=== PATIENT | male | born 1950 | race Caucasian/White ===

== ENCOUNTER 2017-10-21 13:40 | Emergency (ER) | payer OTHER ==
[2017-10-21] MEDS ORDERED: LIDOCAINE 1% 20 ML MDV ONE (14:35)
--- NOTE | 2017-10-21 16:27 | EDPHYS ---
Physician Documentation [facility] Name: Ignacio Espinal Age: 67 yrs Sex: Male : 1950 Arrival Date: 10/21/2017 Time: 13:47 Bed 12 Private MD: ED Physician Aedn Rushing HPI: 10/21 13:59 This 67 yrs old Male presents to ER via Ambulatory with complaints of rh1 Laceration To Hand. 13:59 The patient has a laceration related to: working, from a knife, occurred at home, and rh1 there are no complicating factors. The injury was accidental. The laceration(s) is(are) located on the dorsal aspect of proximal phalanx of right little finger and palmar aspect of proximal phalanx of right little finger. Onset: The symptoms/episode began/occurred just prior to arrival. Associated signs and symptoms: Pertinent negatives: deformity, heavy bleeding, loss of consciousness, numbness distal to injury, suspected foreign body. The patient has not experienced similar symptoms in the past. The patient has not recently seen a physician. Pt. reports he was cutting limbs, and missed the limb, causing laceration at right lateral hand at base of 5th digit. Denies any paresthesias, weakness, decreased ROM.. Historical: - Allergies: 13:57 No Known Allergies; iw - PSHx: 13:56 surgery on finger; Hernia repair; iw - Immunization history:: Adult Immunizations not up to date. - Social history:: Smoking status: . ROS: 13:59 Constitutional: Negative for fever rh1 13:59 Abdomen/GI: Negative for nausea and vomiting. 13:59 MS/extremity: Positive for laceration, pain, Negative for decreased range of motion, paresthesias. 13:59 Skin: Positive for laceration(s). 13:59 Neuro: Negative for numbness, tingling, weakness. 13:59 All other systems are negative. Exam: 13:59 Constitutional: This is a well developed, well nourished patient who is awake, alert, rh1 and in no acute distress. Head/Face: Normocephalic, atraumatic. Neck: Trachea midline, and no cervical lymphadenopathy. Supple, full range of motion without nuchal rigidity. No Meningismus. Cardiovascular: Regular rate and rhythm with a normal S1 and S2. No gallops, murmurs, or rubs. No JVD. No pulse deficits. Respiratory: Lungs have equal breath sounds bilaterally, clear to auscultation. No rales, rhonchi or wheezes noted. No increased work of breathing. Abdomen/GI: Soft, non-tender, with normal bowel sounds. No distension. No guarding or rebound. No evidence of tenderness throughout. Back: No spinal tenderness. No costovertebral tenderness. Full range of motion. 13:59 Musculoskeletal/extremity: Extremities: grossly normal except: noted in the palmar aspect of proximal phalanx of right little finger and dorsal aspect of proximal phalanx of right little finger: laceration, pain, tenderness, There is no evidence of decreased ROM, deformity, ROM: intact in all extremities, full active range of motion, in the right hand, left hand, right arm and left arm, full flexion/extension at fingers at right hand, full passive range of motion, in the right hand, left hand, right arm and left arm, Pulses: noted to be 2+ in the right radial artery and left radial artery, Perfusion: the extremity is pink, warm, with brisk capillary refill, fingers at right hand, Sensation intact. 13:59 Skin: injury, laceration(s), the wound is approximately 2.5 cm(s), with a depth of .5 cm(s), of the palmar aspect of proximal phalanx of right little finger and dorsal aspect of proximal phalanx of right little finger, that can be described as clean, no foreign body, linear, with mild bleeding. 13:59 Neuro: Orientation: is normal, to person, place \T\ time. Mentation: is normal, lucid, able to follow commands, Motor: is normal, moves all fours, Sensation: is normal, no obvious gross deficits, numbness, is not appreciated, tingling, is not appreciated, Gait: is steady, at a normal pace, without difficulty. Vital Signs: 13:56 BP 137 / 84; Pulse 74; Resp 16; Temp 98.2; Pulse Ox 98% on R/A; Weight 77.11 kg; Height iw 5 ft. 8 in. (172.72 cm); Pain 0/10; 13:56 Body Mass Index 25.85 (77.11 kg, 172.72 cm) iw Laceration: 16:24 Wound Repair of 2.5cm ( 1.0in ) subcutaneous laceration to right hand. Linear shaped.. rh1 Distal neuro/vascular/tendon intact. Anesthesia: Wound infiltrated with 8 mls of 1% lidocaine. Wound prep: Moderate cleansing with betadine by nurse, Wound irrigation with saline by nurse, Copious irrigation. Skin closed with 8 4-0 Prolene using simple sutures and sterile technique. Dressed with Bacitracin, 4x4's, non-adherent dressing. Patient tolerated well. MDM: 13:59 Patient medically screened. rh1 16:24 Data reviewed: vital signs, nurses notes, and as a result, I will discharge patient. rh1 Data interpreted: Pulse oximetry: on room air is 98 %. Interpretation: normal. Counseling: I had a detailed discussion with the patient and/or guardian regarding: the historical points, exam findings, and any diagnostic results supporting the discharge/admit diagnosis, the need for outpatient follow up, a family practitioner, to return to the emergency department if symptoms worsen or persist or if there are any questions or concerns that arise at home. 10/21 14:27 Order name: Prolene, Sutures; Complete Time: 19:29 rh1 10/21 14:27 Order name: Dressing - Wound; Complete Time: 19:29 rh1 10/21 14:27 Order name: Gloves, Sterile; Complete Time: 19:29 rh1 10/21 14:27 Order name: Setup Suture Tray; Complete Time: 14:42 rh1 10/21 14:48 Order name: Wound Care: please soak in betadine and then irrigate with 1 L NS; Complete 1 Time: 19:29 Administered Medications: 14:31 Drug: Lidocaine (1 %) 1 vials Volume: 20 ml; Route: Infiltration; 16:35 Drug: Tetanus-Diphtheria Toxoid Adult 0.5 ml {Hotel Baggage Handler: [employer] ([email or web address]). Exp: 12/10/2019. Lot #: [id number]. } Route: IM; Site: left deltoid; 17:00 Follow up: Response: No adverse reaction Disposition: 10/22 14:48 Co-signature as Attending Physician, Aden Rushing MD I agree with the assessment and kathryn plan of care. Disposition: 10/21/17 16:26 Discharged to Home. Impression: Laceration without foreign body of right hand. - Condition is Stable. - Discharge Instructions: Laceration Care, Adult, Sutured Wound Care. - Medication Reconciliation Form, Thank You Letter, Antibiotic Education, Prescription Opioid Use form. - Follow up: Humza Manuel MD; When: 10 - 14 days; Reason: Further diagnostic work-up, Recheck today's complaints, Continuance of care, Staple/Suture removal, Re-evaluation by your physician. Follow up: Emergency Department; When: As needed; Reason: Fever > 102 F, If symptoms return, Trouble breathing, Worsening of condition. - Problem is new. - Symptoms have improved. Signatures: Aden Rushing MD MD cha Williams, Irene, RN RN Paulina Shrestha NP PHOTOGRAMMETRIC SURVEYOR rh1
--- NOTE | 2017-10-21 16:27 | ER ---
Nurse's Notes [facility] Name: Ignacio Espinal Age: 67 yrs Sex: Male : 1950 Arrival Date: 10/21/2017 Time: 13:47 Bed 12 Private MD: Diagnosis: Laceration without foreign body of right hand Presentation: 10/21 13:40 Presenting complaint: Patient states: cut his right hand with knife, laceration to iw medial aspect of right hand, moderate amount of bleeding, controlled now. Transition of care: patient was not received from another setting of care. Complicating Factors: There are no complicating factors for this patient. Onset of symptoms was October 21, 2017. Care prior to arrival: None. 13:40 Method Of Arrival: Ambulatory iw 13:40 Acuity: BEE 4 iw Triage Assessment: 15:00 General: Appears in no apparent distress. Behavior is calm, cooperative. Injury iw Description: Laceration. Historical: - Allergies: 13:57 No Known Allergies; iw - PSHx: 13:56 surgery on finger; Hernia repair; iw - Immunization history:: Adult Immunizations not up to date. - Social history:: Smoking status: . Screenin:45 Abuse screen: Denies threats or abuse. Denies injuries from another. Nutritional iw screening: No deficits noted. Tuberculosis screening: No symptoms or risk factors identified. Fall Risk None identified. Assessment: 15:00 General: Appears in no apparent distress. Pain: Denies pain. Neuro: Level of iw Consciousness is awake, alert, obeys commands. Musculoskeletal: Range of motion: intact in all extremities. Injury Description: Laceration sustained to palmar aspect of proximal phalanx of right little finger and dorsal aspect of proximal phalanx of right little finger is 2.6 to 7.5 cm long, bleeding moderately. 15:52 Reassessment: Patient appears in no apparent distress at this time. Patient and/or iw family updated on plan of care and expected duration. Pain level reassessed. Vital Signs: 13:56 BP 137 / 84; Pulse 74; Resp 16; Temp 98.2; Pulse Ox 98% on R/A; Weight 77.11 kg; Height iw 5 ft. 8 in. (172.72 cm); Pain 0/10; 13:56 Body Mass Index 25.85 (77.11 kg, 172.72 cm) iw ED Course: 13:47 Patient arrived in ED. iw 13:51 Maira Berry RN is Primary Nurse. iw 13:55 Triage completed. iw 13:58 Paulina Mortensen NP is PHCP. rh1 13:58 Aden Rushing MD is Attending Physician. rh1 14:00 Patient has correct armband on for positive identification. iw 14:20 Patient did not have IV access during this emergency room visit. iw 15:30 Assist provider with laceration repair on right hand and palmar aspect of proximal iw phalanx of right little finger and dorsal aspect of proximal phalanx of right little finger that was between 2.6 to 7.5 cm using sutures. Set up tray. Performed by Paulina Mortensen NP Dressed with 4X4s, Neosporin, Patient tolerated well. 16:26 Humza Manuel MD is Referral Physician. rh1 19:26 Arm band placed on. iw Administered Medications: 14:31 Drug: Lidocaine (1 %) 1 vials Volume: 20 ml; Route: Infiltration; iw 16:35 Drug: Tetanus-Diphtheria Toxoid Adult 0.5 ml {Head Orthopedic Team Physician: [employer]. Exp: iw 12/10/2019. Lot #: [id number]. } Route: IM; Site: left deltoid; 17:00 Follow up: Response: No adverse reaction iw Outcome: 16:26 Discharge ordered by . rh1 16:48 Discharged to home ambulatory, with family. iw 16:48 Condition: good 16:48 Discharge instructions given to patient, Instructed on discharge instructions, follow up and referral plans. Demonstrated understanding of instructions, follow-up care. 16:49 Patient left the ED. iw Signatures: Maira Berry RN RN iw Paulina Mortensen, JASMIN BILINGUAL SALES ASSISTANT rh1 Corrections: (The following items were deleted from the chart) 19:24 14:20 Assist provider with laceration repair on right hand and palmar aspect of iw proximal phalanx of right little finger and dorsal aspect of proximal phalanx of right little finger that was between 2.6 to 7.5 cm using sutures. Set up tray. Performed by Paulina Mortensen NP Dressed with 4X4s, Neosporin, Patient tolerated well. iw
[2017-10-21 16:53] VITALS: BP 137/84; TEMP 98.2; O2SAT 98
[2017-10-21] MEDS ORDERED: TETANUS & DIPHTHERIA TOX,ADULT 0.5 ML VIAL ONE (16:57)
== END 2017-10-21 16:49 | disposition home or self-care (01) ==
LOC: ER 13:40
DX: W27.8XXA Contact with other nonpowered hand tool, initial encounter; Y93.H2 Activity, gardening and landscaping; Y99.8 Other external cause status; Y92.007 Garden or yard of unspecified non-institutional (private) residence as the place of occurrence of the external cause; S61.216A Laceration without foreign body of right little finger without damage to nail, initial encounter
CPT/HCPCS: 90714; 99283

== ENCOUNTER 2018-06-20 09:47 | Day surgery (SDC) | payer OTHER ==
--- NOTE | 2018-06-15 14:21 | RAD REPORT ---
EXAM DESCRIPTION: Earl Alberto (2 Views)06/15/2018 2:12 pm CLINICAL HISTORY: Preop for hernia surgery. Hypertension COMPARISON: 2014 FINDINGS: The lungs appear clear of acute infiltrate. The heart is normal size IMPRESSION: No acute abnormalities displayed
[2018-06-15 14:36] LABS: Absolute Lymphocytes (CBC) 1.9 K/uL (0.7-4.9); Absolute Monocytes 0.4 K/uL (0.1-1.3); Absolute Neutrophil 4.6 K/uL (1.8-8.0); Basophils % 1.3 % (0-1.3); Eosinophils % 1.5 % (0-4.4); Hematocrit 40.7 % (39.6-49.0); Lymphocytes % 26.7 % (15.3-44.8); MCH 29.7 pg (27.0-35.0); MPV 7.8 fL (7.6-11.3); Monocytes % 5.7 % (3.3-12.3); RBC Red Blood Cell Count 4.62 M/uL (4.33-5.43)
[2018-06-15 14:45] LABS: Potassium 3.9 mmol/L (3.5-5.1)
--- NOTE | 2018-06-15 15:28 | EKG ---
Test Date: 2018-06-15 Test Time: 13:30:42 Competitive Shopper: SELENA MEASUREMENT RESULTS: Intervals: Rate: 70 OK: 196 QRSD: 102 QT: 394 QTc: 425 [place]: P: 65 OK: 196 QRS: 18 T: 39 INTERPRETIVE STATEMENTS: Normal sinus rhythm Normal ECG Compared to ECG 07/06/2017 08:04:28 Sinus bradycardia no longer present First degree AV block no longer present Electronically Signed On 06-15-18 15:27:22 LAYOUT ARTIST by Juventino Medley
[2018-06-20] MEDS ORDERED: FENTANYL CITR 100 MCG/2 ML ONE (10:16)
[2018-06-20] MEDS ORDERED: GLYCOPYRROLATE 0.2 MG/ML SYR ONE ×2 (10:17→11:36)
[2018-06-20] MEDS ORDERED: Ringers Lactate 1,000 ML IV ONE (10:17)
[2018-06-20] MEDS ORDERED: CEFAZOLIN/SWI 1gm 1 GM/10 ML SYR ONE (10:17)
[2018-06-20] MEDS ORDERED: PROPOFOL 200 MG/20 ML VIAL IV ONE (10:17)
[2018-06-20] MEDS ORDERED: LIDOCAINE 2% MPF 5 ML VIAL ONE (10:18)
[2018-06-20] MEDS ORDERED: NEOSTIGMINE 1 MG/ML -5 ML SYRINGE ONE (10:20)
[2018-06-20] MEDS ORDERED: ONDANSETRON HCL 40 MG/20 ML VIAL ONE (10:20)
[2018-06-20] MEDS ORDERED: ROCURONIUM 50 MG/5 ML VIAL IV ONE (10:20)
[2018-06-20] MEDS ORDERED: MIDAZOLAM HCL 2 MG/2 ML INJ ONE (10:22)
[2018-06-20] MEDS ORDERED: HYDROCODONE/APAP 7.5/325 MG TAB ONE (13:09)
[2018-06-20 13:32] VITALS: BP 110/67; TEMP 98.3; O2SAT 96
--- NOTE | 2018-06-20 22:52 | DS ---
Date of Discharge: 06/20/2018 The patient will go to Day Surgery and home when stable. Disposition: Home. Condition: Stable. Discharge Instructions: Resume home medications and diet. Activity as tolerated. No heavy lifting. Remove outer dressing in 2 days. Shower. Keep wound clean and dry. Keep Steri-Strips on all time s. Tylenol No. 3 one tablet p.o. q.4 hours p.r.n. pain. Abdominal binder. Follow up in my office i n 1 week. Call for appointment. VINAYAK/CALEB Voice ID: [id number] Report ID: [id number]
--- NOTE | 2018-06-20 22:52 | OP ---
Date of Procedure: 06/20/2018 Surgeon: Juan Ga MD Drywall Application Supervisor: JORDY Bauer. Preoperative Diagnosis: Umbilical hernia. Postoperative Diagnosis: Umbilical hernia. Procedure: Laparoscopic-assisted repair of umbilical hernia. Estimated Blood Loss: Minimal. Specimen: Hernia sac and contents. Findings: As above. Anesthesia: General. Complications: None. Disposition: The patient tolerated the procedure in stable condition and was taken to Recovery in go od general condition. Procedure In Detail: The patient was brought to the OR and placed in supine position. General anest hesia was begun. The patient was prepped and draped in usual sterile fashion. Marcaine 0.5% was inf iltrated locally. A 15-blade was used to make a 3-cm curvilinear incision underneath the umbilicus. Subcutaneous tissue was divided. Hernia stalk was identified and excised at the fascial defect. He rnia sac and contents were excised and sent to Pathology as specimen. A 3-cm defect remained. A med ium Ventralex mesh was placed and secured using [id number] #1 PDS suture to secure the mesh and close the fascial defect. Prior to that, a 5-mm trocars had been placed with laparoscope in the left upper quadrant, and this was after the fascia was closed with the mesh. This was used to check, and that needed some shahla to straighten out the mesh. So, another 5-mm trocars placed in the left lo wer quadrant, and then Tacker was used to secure the mesh to the peritoneal surface. No evidence of bleeding or bowel injury was appreciated. Subsequently, all trocars were removed under direct vision . A 3-0 chromic was used to reattached the umbilicus, and 3-0 chromic was also used to approximate s ubcutaneous tissue and close the skin. Sterile dressing was applied. The patient was awakened and t aken to Recovery in good general condition. /MODL Voice ID: [id number] Report ID: [id number]
== END 2018-06-20 14:00 | disposition home or self-care (01) ==
LOC: OR 09:47
PROVIDERS: ATTEND Surgery
PROC: 0WUF0JZ Supplement Abdominal Wall with Synthetic Substitute, Open Approach (ICD-10-PCS; principal; 2018-06-20 11:15)
DX: K42.9 Umbilical hernia without obstruction or gangrene (principal); I10 Essential (primary) hypertension; K21.9 Gastro-esophageal reflux disease without esophagitis; Z82.3 Family history of stroke
CPT/HCPCS: 36415; 49585; 71046; 80048; 85025; 88302; 93005; J0690; J2250; J2405; J2704; J2710; J3010

== ENCOUNTER 2018-06-23 10:05 | Emergency (ER) | payer OTHER ==
[2018-06-23] MEDS ORDERED: NA CHLORIDE 0.9% 500 ML ONE (10:57)
[2018-06-23 11:07] LABS: Absolute Lymphocytes (CBC) 1.3 K/uL (0.7-4.9); Absolute Monocytes 0.7 K/uL (0.1-1.3); Absolute Neutrophil 5.5 K/uL (1.8-8.0); Hematocrit 40.8 % (39.6-49.0); MCH 30.4 pg (27.0-35.0); MCV 87.3 fL (80-100); MPV 7.9 fL (7.6-11.3); RBC Red Blood Cell Count 4.67 M/uL (4.33-5.43)
[2018-06-23 11:12] LABS: Protime INR 1.03
[2018-06-23 11:20] LABS: Albumin 3.8 g/dL (3.4-5.0); Bilirubin Direct 0.2 mg/dL (0-0.2); Bilirubin Total 0.4 mg/dL (0.2-1.0); Magnesium 2.1 mg/dL (1.8-2.4); Protein, Total 7.5 g/dL (6.4-8.2)
--- NOTE | 2018-06-23 12:08 | ER ---
Nurse's Notes [facility] Name: Ignacio Espinal Age: 68 yrs Sex: Male : 1950 Arrival Date: 06/23/2018 Time: 10:08 Bed 15 Private MD: Humza Manuel R Diagnosis: Cellulitis of abdominal wall;Constipation, unspecified Presentation: 06/23 10:19 Presenting complaint: Patient states: "I had surgery Wednesday on my hernias, afterwards aj1 we went to eat and they had that band on me so tight that I passed out. I feel on my side and messed up my neck. I took my bandages off yesterday and this morning it was red around it." Also reports poor appetite and he has been unable to have a bowel movement since prior to surgery. Transition of care: patient was not received from another setting of care. Onset of symptoms was June 23, 2018. Risk Assessment: Do you want to hurt yourself or someone else? Patient reports no desire to harm self or others. Initial Sepsis Screen: Does the patient meet any 2 criteria? No. Patient's initial sepsis screen is negative. Does the patient have a suspected source of infection? Yes: Skin breakdown/wound. Care prior to arrival: None. 10:19 Method Of Arrival: Ambulatory aj1 10:19 Acuity: BEE 3 aj1 Triage Assessment: 10:22 General: Appears in no apparent distress. comfortable, Behavior is calm, cooperative, aj1 appropriate for age. Pain: Denies pain. Neuro: Level of Consciousness is awake, alert, obeys commands. Cardiovascular: Patient's skin is warm and dry. Respiratory: Airway is patent Respiratory effort is even, unlabored, Respiratory pattern is regular, symmetrical. Historical: - Allergies: 10:22 No Known Allergies; aj1 - Home Meds: 10:22 Metoprolol Tartrate Oral [Active]; amlodipine oral [Active]; terazosin oral oral aj1 [Active]; Aspirin Oral [Active]; - PMHx: 10:22 Hypertension; aj1 - PSHx: 10:22 Hernia repair; aj1 - Immunization history:: Flu vaccine is up to date. - Social history:: Smoking status: Patient/guardian denies using tobacco. - Ebola Screening: : Patient denies travel to an Ebola-affected area in the 21 days before illness onset. Screenin:29 Abuse screen: Denies threats or abuse. Denies injuries from another. Nutritional hj screening: No deficits noted. Tuberculosis screening: No symptoms or risk factors identified. Fall Risk None identified. Assessment: 10:22 General: Appears in no apparent distress. uncomfortable, Behavior is calm, cooperative, hj appropriate for age. Pain: Complains of pain in abdomen. Neuro: Level of Consciousness is awake, alert, obeys commands, Oriented to person, place, time, situation, Appropriate for age. Cardiovascular: Capillary refill < 3 seconds Patient's skin is warm and dry. Respiratory: Airway is patent Respiratory effort is even, unlabored, Respiratory pattern is regular, symmetrical. GI: No signs and/or symptoms were reported involving the gastrointestinal system. : No signs and/or symptoms were reported regarding the genitourinary system. EENT: No signs and/or symptoms were reported regarding the EENT system. Derm: Reports pain redness on surgical site. Musculoskeletal: No signs and/or symptoms reported regarding the musculoskeletal system. 11:30 Reassessment: Patient and/or family updated on plan of care and expected duration. Pain hj level reassessed. Patient is alert, oriented x 3, equal unlabored respirations, skin warm/dry/pink. awaiting results and POC;. 12:00 Reassessment: provider in room for results and POC;. hj 12:05 Reassessment: pt for D/C;. hj Vital Signs: 10:22 BP 156 / 91; Pulse 82; Resp 18; Temp 98.2; Pulse Ox 99% on R/A; Weight 80.29 kg (R); aj1 Height 5 ft. 7 in. (170.18 cm) (R); Pain 0/10; 12:03 BP 154 / 89; Pulse 68; Resp 18; Pulse Ox 99% on R/A; hj 10:22 Body Mass Index 27.72 (80.29 kg, 170.18 cm) aj1 ED Course: 10:08 Patient arrived in ED. mr 10:08 Humza Manuel MD is Private Physician. mr 10:21 Triage completed. aj1 10:22 Arm band placed on Patient placed in an exam room. aj1 10:24 Robinson Barrios RN is Primary Nurse. hj 10:29 Patient has correct armband on for positive identification. Bed in low position. Call light in reach. Side rails up X 1. 10:35 Aden Eubanks PA is PHCP. cp 10:35 Isabella Belle MD is Attending Physician. cp 10:55 Initial lab(s) drawn, by al, sent to lab. Inserted saline lock: 20 gauge in right hj antecubital area, using aseptic technique. Blood collected. 11:11 XRAY Abdomen Acute Series In Process Unspecified. EDMS 12:06 Juan Ga MD is Referral Physician. cp 12:19 Urine Microscopic Only Sent. Administered Medications: 10:50 Drug: NS 0.9% 500 ml Route: IV; Rate: bolus; Site: right antecubital; 12:07 Drug: Augmentin Chewable Tablet 800 mg Route: PO; 12:13 Follow up: Response: No adverse reaction Outcome: 12:07 Discharge ordered by . cp 12:20 Patient left the ED. Signatures: Dispatcher [employer] EDAR Frances Dubon RN RN Kell Castellanos Henry, RN RN hj Page, Corey, PA PA cp
--- NOTE | 2018-06-23 12:08 | EDPHYS ---
Physician Documentation [facility] Name: Ignacio Espinal Age: 68 yrs Sex: Male : 1950 Arrival Date: 06/23/2018 Time: 10:08 Bed 15 Private MD: Humza Manuel R ED Physician Isabella Belle HPI: 06/23 10:45 This 68 yrs old Male presents to ER via Ambulatory with complaints of cp Surgical sight red. 10:45 The patient presents with umbilical erythema. cp 10:45 Onset: The symptoms/episode began/occurred noticed today after removing abdominal cp binder. The symptoms do not radiate. Associated signs and symptoms: Pertinent positives: constipation, Pertinent negatives: blood in stools, diarrhea, fever, vomiting, abdominal pain. Historical: - Allergies: 10:22 No Known Allergies; aj1 - Home Meds: 10:22 Metoprolol Tartrate Oral [Active]; amlodipine oral [Active]; terazosin oral oral aj1 [Active]; Aspirin Oral [Active]; - PMHx: 10:22 Hypertension; aj1 - PSHx: 10:22 Hernia repair; aj1 - Immunization history:: Flu vaccine is up to date. - Social history:: Smoking status: Patient/guardian denies using tobacco. - Ebola Screening: : Patient denies travel to an Ebola-affected area in the 21 days before illness onset. ROS: 10:47 Constitutional: Negative for body aches, chills, fever, poor PO intake. cp 10:47 Eyes: Negative for injury, pain, redness, and discharge. cp 10:47 ENT: Negative for drainage from ear(s), ear pain, sore throat, difficulty swallowing, difficulty handling secretions. 10:47 Cardiovascular: Negative for chest pain, edema, palpitations. 10:47 Respiratory: Negative for cough, shortness of breath, wheezing. 10:47 Abdomen/GI: Positive for constipation, of the umbilical area, erythema, Negative for nausea, vomiting, and diarrhea, anorexia, black/tarry stool, rectal bleeding. 10:47 Back: Negative for radiated pain. 10:47 : Negative for urinary symptoms, testicular pain 10:47 Neuro: Negative for altered mental status, headache, weakness. 10:47 All other systems are negative. Exam: 10:55 Constitutional: The patient appears in no acute distress, alert, awake, cp non-diaphoretic, non-toxic, well developed, well nourished. 10:55 Head/Face: Normocephalic, atraumatic. cp 10:55 Eyes: Periorbital structures: appear normal, Pupils: equal, round, and reactive to light and accomodation, Conjunctiva: normal, no exudate, no injection, Sclera: no appreciated abnormality, Lids and lashes: appear normal, bilaterally. 10:55 ENT: External ear(s): are unremarkable, Ear canal(s): are normal, clear, TM's: bulging, is not appreciated, bilaterally, dullness, bilaterally, erythema, is not appreciated, bilaterally, Nose: is normal, Mouth: is normal, Posterior pharynx: is normal, airway is patent, no erythema, no exudate. 10:55 Neck: ROM/movement: is normal, is supple, without pain, no range of motions limitations, no nuchal rigidity. 10:55 Neck: Lymph nodes: lymphadenopathy is appreciated, parotid nodes. 10:55 Chest/axilla: Inspection: normal, Palpation: is normal, no crepitus, no tenderness. 10:55 Cardiovascular: Rate: normal, Rhythm: regular, Heart sounds: murmur, not appreciated, Edema: is not appreciated, JVD: is not appreciated. 10:55 Respiratory: the patient does not display signs of respiratory distress, Respirations: normal, no use of accessory muscles, no retractions, no splinting, no tachypnea, labored breathing, is not present, Breath sounds: are clear throughout, no decreased breath sounds, no stridor, no wheezing. 10:55 Abdomen/GI: Inspection: scar(s), are noted in the umbilical area, left upper quadrant and left lower quadrant, mild erythema noted extending from umbilicus, Bowel sounds: active, all quadrants, Palpation: abdomen is soft and non-tender, in all quadrants, rebound tenderness, is not appreciated, voluntary guarding, is not appreciated, involuntary guarding, is not appreciated. 10:55 Back: pain, is absent, ROM is normal. 10:55 Musculoskeletal/extremity: Exam is negative for calf tenderness, decreased range of motion, deformity, injury. 10:55 Neuro: Orientation: to person, place \T\ time. Mentation: is normal, Cerebellar function: is grossly normal, Motor: moves all fours, strength is normal, Sensation: is normal. Vital Signs: 10:22 BP 156 / 91; Pulse 82; Resp 18; Temp 98.2; Pulse Ox 99% on R/A; Weight 80.29 kg (R); aj1 Height 5 ft. 7 in. (170.18 cm) (R); Pain 0/10; 12:03 BP 154 / 89; Pulse 68; Resp 18; Pulse Ox 99% on R/A; hj 10:22 Body Mass Index 27.72 (80.29 kg, 170.18 cm) aj1 MDM: 10:35 Patient medically screened. cp 12:00 Physician consultation: Juan Ga MD was called at 12:00, was contacted at 12:00, regarding patient's condition, and will see patient in office, next week. 12:05 Data reviewed: vital signs, nurses notes, lab test result(s), radiologic studies, plain cp films. 12:05 Test interpretation: by ED physician or midlevel provider: plain radiologic studies. cp Counseling: I had a detailed discussion with the patient and/or guardian regarding: the historical points, exam findings, and any diagnostic results supporting the discharge/admit diagnosis, lab results, radiology results, the need for outpatient follow up, a general surgeon, to return to the emergency department if symptoms worsen or persist or if there are any questions or concerns that arise at home. 06/23 10:47 Order name: Basic Metabolic Panel; Complete Time: 11:48 06/23 11:48 Interpretation: Normal except: GLUC 110; GFR 67. 06/23 10:47 Order name: CBC with Diff; Complete Time: 11:48 cp 06/23 10:47 Order name: Creatinine for Radiology; Complete Time: 11:48 cp 06/23 10:47 Order name: Hepatic Function; Complete Time: 11:48 06/23 11:49 Interpretation: Normal except: GLOB 3.7; A/G 1.0. 06/23 10:47 Order name: PT-INR; Complete Time: 11:48 cp 06/23 10:47 Order name: Ptt, Activated; Complete Time: 11:48 cp 06/23 10:47 Order name: IV Saline Lock; Complete Time: 10:59 cp 06/23 10:47 Order name: Labs collected and sent; Complete Time: 10:59 cp 06/23 10:47 Order name: Magnesium; Complete Time: 11:48 cp 06/23 10:47 Order name: Urine Dipstick-Ancillary (obtain specimen); Complete Time: 12:18 cp 06/23 10:47 Order name: Urine Microscopic Only cp 06/23 10:48 Order name: XRAY Abdomen Acute Series cp Administered Medications: 10:50 Drug: NS 0.9% 500 ml Route: IV; Rate: bolus; Site: right antecubital; hj 12:07 Drug: Augmentin Chewable Tablet 800 mg Route: PO; hj 12:13 Follow up: Response: No adverse reaction hj Disposition: 18:37 Co-signature as Attending Physician, Isabella Belle MD. ma2 Disposition: 06/23/18 12:07 Discharged to Home. Impression: Cellulitis of abdominal wall, Constipation, unspecified. - Condition is Stable. - Discharge Instructions: Cellulitis, Adult, Constipation, Adult, High-Fiber Diet. - Prescriptions for Augmentin 875- 125 mg Oral Tablet - take 1 tablet by ORAL route every 12 hours for 10 days; 20 tablet. Miralax 17 gram/dose Oral - take 1 packet by ORAL route once daily for 14-21 days dilute powder in 8 ounces of water or juice; 20 packet. - Medication Reconciliation Form, Thank You Letter, Antibiotic Education, Prescription Opioid Use form. - Follow up: Juan Ga MD; When: 06/28/2018; Reason: Recheck today's complaints. - Problem is new. - Symptoms have improved. Signatures: Dispatcher [employer] Frances Mata RN RN aj1 Robinson Barrios RN RN hj Page, Corey, PA PA Isabella Belle MD MD ma2 Corrections: (The following items were deleted from the chart) 12:20 12:07 06/23/2018 12:07 Discharged to Home. Impression: Cellulitis of abdominal wall; hj Constipation, unspecified. Condition is Stable. Forms are Medication Reconciliation Form, Thank You Letter, Antibiotic Education, Prescription Opioid Use. Follow up: Dr. Juan Ga; When: 06/28/2018; Reason: Recheck today's complaints. Problem is new. Symptoms have improved. cp
--- NOTE | 2018-06-23 12:11 | RAD REPORT ---
EXAM DESCRIPTION: RAD - Abdomen Acute Series - 06/23/2018 11:11 am CLINICAL HISTORY: CONSTIPATION Recent surgery, pain after fall COMPARISON: Chest Pa And Lat (2 Views) dated 06/15/2018; CHEST PA AND LAT 2 VIEW dated 07/01/2015 FINDINGS: Lungs are grossly clear. No subdiaphragmatic free air seen. Heart is in size for old right -sided rib fractures noted. Prominent fecal retention in the colon is seen. No bowel obstruction present. Mild gaseous distention of large and small bowel seen suggesting adynamic ileus. IMPRESSION: Mild gaseous distention of bowel loops with fecal retention present suggesting adynamic ileus.
[2018-06-23] MEDS ORDERED: AMOX TR/K CLAV 400MG CHEW TAB PO ONE (12:17)
[2018-06-23 12:44] LABS: Urine Blood NEGATIVE (NEG); Urine Glucose NEGATIVE (NEG); Urine Protein NEGATIVE (NEG); Urine Specific Gravity 1.015 (1.005-1.030); Urine pH 7.5 (5.0-7.0)
[2018-06-23 12:45] LABS: Urine Bacteria NONE SEEN /HPF (NONE SEEN); Urine Culture Reflex Order NOT NEEDED; Urine RBC <5 /HPF (NONE SEEN)
[2018-06-23 12:57] VITALS: TEMP 98.2; O2SAT 99
[2018-06-23 12:59] VITALS: BP 154/89
== END 2018-06-23 12:20 | disposition home or self-care (01) ==
LOC: ER 10:05
DX: L03.311 Cellulitis of abdominal wall (principal); K59.00 Constipation, unspecified; I10 Essential (primary) hypertension; Z79.82 Long term (current) use of aspirin
CPT/HCPCS: 36415; 74022; 80048; 80076; 81003; 81015; 83735; 85025; 85610; 85730; 99284

== ENCOUNTER 2018-07-30 07:37 | Emergency (ER) | payer OTHER ==
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
--- NOTE | 2018-07-30 09:52 | RAD REPORT ---
EXAM DESCRIPTION: RAD - Humerus Right - 07/30/2018 8:47 am CLINICAL HISTORY: Nontraumatic right arm pain COMPARISON: None. FINDINGS: No fracture is identified. There is no dislocation or periosteal reaction noted. No acute or destructive bone process seen. Patient has minimal degenerative change along the undersurface of t he acromion. Acromial humeral joint space is normal. No abnormal soft tissue calcification. No acute elbow joint finding. IMPRESSION: Negative right humerus examination for acute or significant finding.
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
[2018-07-30 11:23] VITALS: TEMP 98.4; O2SAT 100
[2018-07-30 11:25] VITALS: BP 149/99
== END 2018-07-30 11:18 | disposition home or self-care (01) ==
LOC: ER 07:37
DX: S90.02XA Contusion of left ankle, initial encounter (principal); W22.8XXA Striking against or struck by other objects, initial encounter; M79.621 Pain in right upper arm; I10 Essential (primary) hypertension; F17.290 Nicotine dependence, other tobacco product, uncomplicated; Z79.899 Other long term (current) drug therapy
CPT/HCPCS: 99283

== ENCOUNTER 2018-09-03 08:57 | Emergency (ER) | payer MEDICARE, OTHER ==
--- OUTSIDE RECORDS SUMMARY | 2018-09-03 08:59 | XMS REPORT ---
:1950 [facility] Address [address] [place] [address] Dr. Haskins [address] [place] [id number] Care Team Providers Name Role Phone Unavailable Unavailable Unavailable Problems This patient has no known problems. Allergies, Adverse Reactions, Alerts This patient has no known allergies or adverse reactions. Medications This patient has no known medications.
--- NOTE | 2018-09-03 09:16 | ER ---
Nurse's Notes [facility] Name: Ignacio Espinal Age: 68 yrs Sex: Male : 1950 Arrival Date: 09/03/2018 Time: 09:01 Bed 16 Private MD: Bashir Cedillo S Diagnosis: Puncture wound without foreign body of right hand Presentation: 09/03 09:10 Presenting complaint: Patient states: was nailing screws yesterday, one of the screws iw caught palm of right hand, is worried about infection. Transition of care: patient was not received from another setting of care. Onset of symptoms was September 02, 2018. Risk Assessment: Do you want to hurt yourself or someone else? Patient reports no desire to harm self or others. Initial Sepsis Screen: Does the patient meet any 2 criteria? No. Patient's initial sepsis screen is negative. Does the patient have a suspected source of infection? No. Patient's initial sepsis screen is negative. Care prior to arrival: None. 09:10 Method Of Arrival: Ambulatory iw 09:10 Acuity: BEE 4 iw Historical: - Allergies: 09:12 No Known Allergies; iw - PMHx: 09:12 Hypertension; Bipolar disorder; iw - PSHx: 09:12 Hernia repair; iw - Immunization history:: Adult Immunizations up to date, Last tetanus immunization: up to date. - Social history:: Smoking status: . - Ebola Screening: : Patient negative for fever greater than or equal to 101.5 degrees Fahrenheit, and additional compatible Ebola Virus Disease symptoms Patient denies exposure to infectious person Patient denies travel to an Ebola-affected area in the 21 days before illness onset No symptoms or risks identified at this time. Screenin:11 Abuse screen: Denies threats or abuse. Denies injuries from another. Nutritional bp screening: No deficits noted. Tuberculosis screening: No symptoms or risk factors identified. Fall Risk None identified. Assessment: 09:09 General: Appears in no apparent distress. comfortable, Behavior is calm, cooperative, bp appropriate for age. Pain: Complains of pain in Right first web space. Neuro: Level of Consciousness is awake, alert, obeys commands, Oriented to person, place, time, situation, Appropriate for age. Cardiovascular: No deficits noted. Respiratory: Airway is patent Respiratory effort is even, unlabored, Respiratory pattern is regular, symmetrical. GI: No signs and/or symptoms were reported involving the gastrointestinal system. : No signs and/or symptoms were reported regarding the genitourinary system. EENT: No deficits noted. Derm: Wound noted Right first web space. Musculoskeletal: Circulation, motion, and sensation intact. Range of motion: intact in all extremities. 09:27 Reassessment: PT D/C HOME AMBULATORY WITH FAMILY, DX WITH PUNCTURE WOUND. bp Vital Signs: 09:12 BP 156 / 92; Pulse 88; Resp 16; Pulse Ox 97% on R/A; iw ED Course: 09:01 Patient arrived in ED. mr 09:02 Bashir Cedillo MD is Private Physician. mr 09:05 Phillip oSfia, RN is Primary Nurse. bp 09:08 Gustavo Robertson MD is Attending Physician. ps1 09:11 Triage completed. iw 09:11 Patient has correct armband on for positive identification. Bed in low position. Call bp light in reach. Side rails up X2. Adult w/ patient. 09:15 Bashir Cedillo MD is Referral Physician. ps1 09:31 Arm band placed on. bp 09:31 No provider procedures requiring assistance completed. Patient did not have IV access bp during this emergency room visit. Administered Medications: No medications were administered Outcome: 09:16 Discharge ordered by MD. ps1 09:31 Discharged to home ambulatory, with family. bp 09:31 Condition: stable 09:31 Discharge instructions given to patient, Instructed on discharge instructions, follow up and referral plans. medication usage, Demonstrated understanding of instructions, follow-up care, medications, Prescriptions given X 1. 09:32 Patient left the ED. bp Signatures: Kell Horton Irene, RN RN iw Phillip Sofia, RN RN bp Gustavo Robertson MD MD ps1
--- NOTE | 2018-09-03 09:17 | EDPHYS ---
Physician Documentation [facility] Name: Ignacio Espinal Age: 68 yrs Sex: Male : 1950 Arrival Date: 09/03/2018 Time: 09:01 Bed 16 Private MD: Bashir Cedillo S ED Physician Gustavo Robertson HPI: 09/03 09:11 This 68 yrs old Male presents to ER via Ambulatory with complaints of Wound ps1 Infection. 09:11 patient injured right hand at [place] yesterday with a screw. He states that ps1 today he is having swelling, redness, and pain. Pain rated as moderate. He still maintains FROM. No fever. TDAP up to date. . Historical: - Allergies: 09:12 No Known Allergies; iw - PMHx: 09:12 Hypertension; Bipolar disorder; iw - PSHx: 09:12 Hernia repair; iw - Immunization history:: Adult Immunizations up to date, Last tetanus immunization: up to date. - Social history:: Smoking status: . - Ebola Screening: : Patient negative for fever greater than or equal to 101.5 degrees Fahrenheit, and additional compatible Ebola Virus Disease symptoms Patient denies exposure to infectious person Patient denies travel to an Ebola-affected area in the 21 days before illness onset No symptoms or risks identified at this time. ROS: 09:11 Constitutional: Negative for fever, chills, and weight loss, Eyes: Negative for injury, ps1 pain, redness, and discharge, ENT: Negative for injury, pain, and discharge, Cardiovascular: Negative for chest pain, palpitations, and edema, Respiratory: Negative for shortness of breath, cough, wheezing, and pleuritic chest pain, Abdomen/GI: Negative for abdominal pain, nausea, vomiting, diarrhea, and constipation, Skin: Negative for injury, rash, and discoloration, Neuro: Negative for headache, weakness, numbness, tingling, and seizure. 09:11 MS/extremity: Positive for erythema, pain, of the right hand and Right first web space. Exam: 09:11 Constitutional: This is a well developed, well nourished patient who is awake, alert, ps1 and in no acute distress. Head/Face: Normocephalic, atraumatic. Eyes: Pupils equal round and reactive to light, extra-ocular motions intact. Lids and lashes normal. Conjunctiva and sclera are non-icteric and not injected. Chest/axilla: Normal chest wall appearance and motion. Nontender with no deformity. No lesions are appreciated. Cardiovascular: Regular rate and rhythm. No gallops, murmurs, or rubs. Normal PMI, no JVD. No pulse deficits. Respiratory: Lungs have equal breath sounds bilaterally, clear to auscultation and percussion. No rales, rhonchi or wheezes noted. No increased work of breathing, no retractions or nasal flaring. Abdomen/GI: Soft, non-tender, with normal bowel sounds. No distension or tympany. No guarding or rebound. No evidence of tenderness throughout. Skin: Warm, dry with normal turgor. Normal color with no rashes, no lesions, and no evidence of cellulitis. 09:11 Musculoskeletal/extremity: Extremities: grossly normal except: noted in the Right first web space: pain, swelling, tenderness, There is no evidence of flexor tenosynovitis. Vital Signs: 09:12 BP 156 / 92; Pulse 88; Resp 16; Pulse Ox 97% on R/A; iw MDM: 09:15 Data reviewed: vital signs, nurses notes, and as a result, I will discharge patient. ps1 Counseling: I had a detailed discussion with the patient and/or guardian regarding: the historical points, exam findings, and any diagnostic results supporting the discharge/admit diagnosis, to return to the emergency department if symptoms worsen or persist or if there are any questions or concerns that arise at home. 09:16 Patient medically screened. ps1 Administered Medications: No medications were administered Disposition: 09/03/18 09:16 Discharged to Home. Impression: Puncture wound without foreign body of right hand. - Condition is Stable. - Discharge Instructions: Cellulitis, Adult. - Prescriptions for Clindamycin HCl 300 mg Oral Capsule - take 1 capsule by ORAL route every 6 hours for 10 days; 40 capsule. - Medication Reconciliation Form, Thank You Letter, Antibiotic Education, Prescription Opioid Use form. - Follow up: Bashir Cedillo MD; When: As needed; Reason: Recheck today's complaints, Continuance of care, Re-evaluation by your physician. Follow up: Emergency Department; When: As needed; Reason: Worsening of condition. - Problem is new. - Symptoms have improved. Signatures: Maira Berry, RN RN iw Phillip Sofia RN RN bp Gustavo Robertson MD MD ps1 Corrections: (The following items were deleted from the chart) 09:32 09:16 09/03/2018 09:16 Discharged to Home. Impression: Puncture wound without foreign bp body of right hand. Condition is Stable. Forms are Medication Reconciliation Form, Thank You Letter, Antibiotic Education, Prescription Opioid Use. Follow up: Bashir Cedillo; When: As needed; Reason: Recheck today's complaints, Continuance of care, Re-evaluation by your physician. Follow up: Emergency Department; When: As needed; Reason: Worsening of condition. Problem is new. Symptoms have improved. ps1
[2018-09-03 09:58] VITALS: BP 156/92; O2SAT 97
== END 2018-09-03 09:32 | disposition home or self-care (01) ==
LOC: ER 08:57
DX: S61.431A Puncture wound without foreign body of right hand, initial encounter (principal); W45.8XXA Other foreign body or object entering through skin, initial encounter
CPT/HCPCS: 99281

== ENCOUNTER 2018-11-22 14:01 | Emergency (ER) | payer MEDICARE ==
--- OUTSIDE RECORDS SUMMARY | 2018-11-22 14:04 | XMS REPORT ---
:1950 Author Organization [facility] Address [address] [place] [address] Care Team Providers Name Role Phone Unavailable Unavailable Unavailable Payers Payer Name Policy Type Policy Number Effective Date Expiration Date Problems This patient has no known problems. Allergies, Adverse Reactions, Alerts Allergy Name Allergy Status Severity Reaction(s) Onset Inactive Treating Comments Type Date Date Clinician No Known Drug DA Active U 2007-0 Intolerances 8-27 00:00: 00 No Known DA Active U 2007-0 Contrast 8-27 Allergies 00:00: 00 No Known Drug DA Active U 2007-0 Allergies 8-27 00:00: 00 No Known Food DA Active U 2007-0 Allergies 8-27 00:00: 00 No Known Other DA Active U 2007-0 Allergies 8-27 00:00: 00 Medications This patient has no known medications. Results Test Description Test Time Test Comments Text Results Atomic Results Result Comments CBC W/AUTO DIFF 2018-09-26 20:24:00 Test Item Value Reference Range Comments WHITE BLOOD CELL (test code=WBC) 5.3 K/mm3 3.5-11.0 RED BLOOD CELL (test code=RBC) 4.60 M/mm3 4.70-6.10 HEMOGLOBIN (test code=HGB) 13.4 G/DL 12.3-15.9 HEMATOCRIT (test code=HCT) 38.9 % 35.8-46.7 MEAN CELL VOLUME (test code=MCV) 84.6 Fl 86.3-98.9 MEAN CELL HGB (test code=MCH) 29.1 pg 28.9-34.4 MEAN CELL HGB CONCETRATION (test 34.4 G/DL 32.1-34.5 code=MCHC) RED CELL DISTRIBUTION WIDTH (test 14.0 SD 11.5-14.5 code=RDW) PLATELET COUNT (test code=PLT) 194.0 K/mm3 150-450 MEAN PLATELET VOLUME (test 9.30 fL 7.0-9.6 code=MPV) NEUTROPHIL % (test code=NT%) 50.5 % 40-76 LYMPHOCYTE % (test code=LY%) 37.2 % 20.5-51.1 MONOCYTE % (test code=MO%) 10.9 % 1.7-9.3 EOSINOPHIL % (test code=EO%) 0.6 % 0.0-6.0 BASOPHIL % (test code=BA%) 0.8 % 0.0-2.0 NEUTROPHIL # (test code=NT#) 2.69 K/mm3 1.8-7.6 LYMPHOCYTE # (test code=LY#) 2.0 K/mm3 0.6-3.0 MONOCYTE # (test code=MO#) 0.6 K/mm3 0.2-1.5 EOSINOPHIL # (test code=EO#) 0.0 K/mm3 0.0-0.4 BASOPHIL # (test code=BA#) 0.0 K/mm3 0.0-0.2 MANUAL DIFF REQUIRED (test NO DIFF/SCN CRITERIA SLIDE REVIEW CONSISTANT WITH code=MDIFF) AUTO DIFFERENTIAL. CBC W/AUTO [id number] 17:21:00 Test Item Value Reference Range Comments WHITE BLOOD CELL (test code=WBC) 5.3 K/mm3 3.5-11.0 RED BLOOD CELL (test code=RBC) 4.60 M/mm3 4.70-6.10 HEMOGLOBIN (test code=HGB) 13.4 G/DL 12.3-15.9 HEMATOCRIT (test code=HCT) 38.9 % 35.8-46.7 MEAN CELL VOLUME (test code=MCV) 84.6 Fl 86.3-98.9 MEAN CELL HGB (test code=MCH) 29.1 pg 28.9-34.4 MEAN CELL HGB CONCETRATION (test code=MCHC) 34.4 G/DL 32.1-34.5 RED CELL DISTRIBUTION WIDTH (test code=RDW) 14.0 SD 11.5-14.5 PLATELET COUNT (test code=PLT) 194.0 K/mm3 150-450 MEAN PLATELET VOLUME (test code=MPV) 9.30 fL 7.0-9.6 NEUTROPHIL % (test code=NT%) 50.5 % 40-76 LYMPHOCYTE % (test code=LY%) 37.2 % 20.5-51.1 MONOCYTE % (test code=MO%) 10.9 % 1.7-9.3 EOSINOPHIL % (test code=EO%) 0.6 % 0.0-6.0 BASOPHIL % (test code=BA%) 0.8 % 0.0-2.0 NEUTROPHIL # (test code=NT#) 2.69 K/mm3 1.8-7.6 LYMPHOCYTE # (test code=LY#) 2.0 K/mm3 0.6-3.0 MONOCYTE # (test code=MO#) 0.6 K/mm3 0.2-1.5 EOSINOPHIL # (test code=EO#) 0.0 K/mm3 0.0-0.4 BASOPHIL # (test code=BA#) 0.0 K/mm3 0.0-0.2 MANUAL DIFF REQUIRED (test code=MDIFF) DIFF/SCN CRITERIA BASIC METABOLIC [id number] 13:49:00 Test Item Value Reference Range Comments SODIUM (test code=NA) 140 mmol/L 134-147 POTASSIUM (test code=K) 3.5 mmol/L 3.4-5.0 CHLORIDE (test code=CL) 107 mmol/L 100-108 CARBON DIOXIDE (test code=CO2) 25 mmol/L 21-32 ANION GAP (test code=GAP) 8.0 GAP calc 4.0-15.0 GLUCOSE (test code=GLU) 71 MG/DL 70-110 BLOOD UREA NITROGEN (test code=BUN) 13 MG/DL 7-18 GLOMERULAR FILTRATION RATE (test >=60 max estimate estGFR >60 code=GFR) CREATININE (test code=CREAT) 0.9 MG/DL 0.8-1.3 CALCIUM (test code=CA) 8.3 MG/DL 8.5-10.1 Last Dose Date: 09/25/18Last Dose Time: 0700HEPATIC FUNCTION [id number] 13: 49:00 Test Item Value Reference Range Comments TOTAL PROTEIN (test code=PROT) 7.7 G/DL 6.4-8.2 ALBUMIN (test code=ALB) 3.6 G/DL 3.4-5.0 BILIRUBIN TOTAL (test code=BILT) 0.30 MG/DL 0.2-1.2 BILIRUBIN DIRECT (test code=BILD) < 0.10 MG/DL 0.00-0.30 BILIRUBIN INDIRECT (test code=BILIND) 0.20 MG/DL 0.2-1.2 SGOT/AST (test code=AST) 32 Unit/L 15-37 SGPT/ALT (test code=ALT) 27 Unit/L 12-78 ALKALINE PHOSPHATASE TOTAL (test code=ALKP) 69 Unit/L 50-136 Last Dose Date: 09/25/18 Dose Time: [id number] 13:49:00 Test Item Value Reference Range Comments ACETAMINOPHEN (test code=ACET) > 2.0 mcG/ML 10.0-30.0 Last Dose Date: 09/25/18 Dose Time: [id number] 13:49:00 Test Item Value Reference Range Comments ALCOHOL (test code=ALC) < 3 MG/DL 0-10 Last Dose Date: 09/25/18 Dose Time: [id number] 13:44:00 Test Item Value Reference Range Comments SALICYLATE (test code=ADRIANA) < 1.7 MG/DL 2.8-20.0 THER URINALYSIS [id number] 13:41:00 Test Item Value Reference Range Comments UA COLOR (test code=COLU) YELLOW discript YEL/STRAW UA APPEARANCE (test code=APPU) CLEAR discript CLEAR UA GLUCOSE DIPSTICK (test code=DGLUU) NEGATIVE mg/dL NEG UA BILIRUBIN DIPSTICK (test code=BILU) NEGATIVE mg/dL NEG UA KETONE DIPSTICK (test code=KETU) TRACE mg/dL NEG UA SPECIFIC GRAVITY (test code=SGU) 1.020 SG 1.005-1.030 UA BLOOD DIPSTICK (test code=ANALIA) NEGATIVE mg/DL NEG UA PH DIPSTICK (test code=GLORIA) 6.0 pH UNITS 5.0-7.0 UA PROTEIN DIPSTICK (test code=PROU) TRACE mg/dL NEG UA UROBILINIOGEN DIPSTICK (test code=URO) 0.2 mg/dL <2.0 UA NITRITE DIPSTICK (test code=REBECCA) NEGATIVE SCREEN NEG UA LEUKOCYTE ESTERASE DIPSTICK (test NEGATIVE Leuk/mcL NEGATIVE code=LEUU) UA WBC (test code=WBCU) 0-1 #WBC/HPF 0-3 UA BACTERIA (test code=BACU) NONE SEEN /HPF NONE-TRACE UA SQUAMOUS CELLS (test code=SQU) TRACE /HPF NONE UA MUCUS (test code=MUCU) TRACE /LPF NONE SEEN DRUGS OF ABUSE SCREEN [id number] 13:41:00 Test Item Value Reference Range Comments URN COCAINE (test code=COCAURN) NEGATIVE SCcutoff <300 NG/ML URN CANNABINOIDS (test code=CANNABURN) NEGATIVE SCcutoff <50 NG/ML URN AMPHETAMINE (test code=AMPHETURN) NEGATIVE SCcutoff <1000 NG/ML URN BARBITURATE (test code=BARBITURN) NEGATIVE SCcutoff <200 NG/ML URN BENZODIAZEPINE (test code=BENZOURN) NEGATIVE SCcutoff <200 NG/ML URN OPIATES (test code=OPIATURN) NEGATIVE SCcutoff <2000 NG/ML URN PHENCYCLIDINE (PCP) (test NEGATIVE SCcutoff <25 NG/ML code=PHENCURN) URN METHADONE (test code=METHAURN) NEGATIVE SCcutoff <300 NG/ML URINALYSIS [id number] 13:33:00 Test Item Value Reference Range Comments UA COLOR (test code=COLU) YELLOW discript YEL/STRAW UA APPEARANCE (test code=APPU) CLEAR discript CLEAR UA GLUCOSE DIPSTICK (test code=DGLUU) NEGATIVE mg/dL NEG UA BILIRUBIN DIPSTICK (test code=BILU) NEGATIVE mg/dL NEG UA KETONE DIPSTICK (test code=KETU) TRACE mg/dL NEG UA SPECIFIC GRAVITY (test code=SGU) 1.020 SG 1.005-1.030 UA BLOOD DIPSTICK (test code=ANALIA) NEGATIVE mg/DL NEG UA PH DIPSTICK (test code=GLORIA) 6.0 pH UNITS 5.0-7.0 UA PROTEIN DIPSTICK (test code=PROU) TRACE mg/dL NEG UA UROBILINIOGEN DIPSTICK (test code=URO) 0.2 mg/dL <2.0 UA NITRITE DIPSTICK (test code=REBECCA) NEGATIVE SCREEN NEG UA LEUKOCYTE ESTERASE DIPSTICK (test NEGATIVE Leuk/mcL NEGATIVE code=LEUU) UA WBC (test code=WBCU) 0-1 #WBC/HPF 0-3 UA BACTERIA (test code=BACU) NONE SEEN /HPF NONE-TRACE UA SQUAMOUS CELLS (test code=SQU) TRACE /HPF NONE UA MUCUS (test code=MUCU) TRACE /LPF NONE SEEN DRUGS OF ABUSE SCREEN [id number] 13:33:00 Test Item Value Reference Range Comments URN COCAINE (test code=COCAURN) SCcutoff <300 NG/ML URN CANNABINOIDS (test code=CANNABURN) SCcutoff <50 NG/ML URN AMPHETAMINE (test code=AMPHETURN) SCcutoff <1000 NG/ML URN BARBITURATE (test code=BARBITURN) SCcutoff <200 NG/ML URN BENZODIAZEPINE (test code=BENZOURN) SCcutoff <200 NG/ML URN OPIATES (test code=OPIATURN) SCcutoff <2000 NG/ML URN PHENCYCLIDINE (PCP) (test code=PHENCURN) SCcutoff <25 NG/ML URN METHADONE (test code=METHAURN) SCcutoff <300 NG/ML CBC W/AUTO [id number] 13:32:00 Test Item Value Reference Range Comments WHITE BLOOD CELL (test code=WBC) 5.3 K/mm3 3.5-11.0 RED BLOOD CELL (test code=RBC) 4.60 M/mm3 4.70-6.10 HEMOGLOBIN (test code=HGB) 13.4 G/DL 12.3-15.9 HEMATOCRIT (test code=HCT) 38.9 % 35.8-46.7 MEAN CELL VOLUME (test code=MCV) 84.6 Fl 86.3-98.9 MEAN CELL HGB (test code=MCH) 29.1 pg 28.9-34.4 MEAN CELL HGB CONCETRATION (test code=MCHC) 34.4 G/DL 32.1-34.5 RED CELL DISTRIBUTION WIDTH (test code=RDW) 14.0 SD 11.5-14.5 PLATELET COUNT (test code=PLT) 194.0 K/mm3 150-450 MEAN PLATELET VOLUME (test code=MPV) 9.30 fL 7.0-9.6 NEUTROPHIL % (test code=NT%) % 40-76 LYMPHOCYTE % (test code=LY%) % 20.5-51.1 MONOCYTE % (test code=MO%) % 1.7-9.3 EOSINOPHIL % (test code=EO%) % 0.0-6.0 BASOPHIL % (test code=BA%) % 0.0-2.0 NEUTROPHIL # (test code=NT#) K/mm3 1.8-7.6 LYMPHOCYTE # (test code=LY#) K/mm3 0.6-3.0 MONOCYTE # (test code=MO#) K/mm3 0.2-1.5 EOSINOPHIL # (test code=EO#) K/mm3 0.0-0.4 BASOPHIL # (test code=BA#) K/mm3 0.0-0.2 MANUAL DIFF REQUIRED (test code=MDIFF) DIFF/SCN CRITERIA BASIC METABOLIC [id number] 13:32:00 Test Item Value Reference Range Comments SODIUM (test code=NA) 140 mmol/L 134-147 POTASSIUM (test code=K) 3.5 mmol/L 3.4-5.0 CHLORIDE (test code=CL) 107 mmol/L 100-108 CARBON DIOXIDE (test code=CO2) 25 mmol/L 21-32 ANION GAP (test code=GAP) 8.0 GAP calc 4.0-15.0 GLUCOSE (test code=GLU) 71 MG/DL 70-110 BLOOD UREA NITROGEN (test code=BUN) 13 MG/DL 7-18 GLOMERULAR FILTRATION RATE (test code=GFR) estGFR >60 CREATININE (test code=CREAT) MG/DL 0.8-1.3 CALCIUM (test code=CA) 8.3 MG/DL 8.5-10.1 Last Dose Date: 09/25/18Last Dose Time: 0700HEPATIC FUNCTION [id number] 13: 32:00 Test Item Value Reference Range Comments TOTAL PROTEIN (test code=PROT) G/DL 6.4-8.2 ALBUMIN (test code=ALB) G/DL 3.4-5.0 BILIRUBIN TOTAL (test code=BILT) MG/DL 0.2-1.2 BILIRUBIN DIRECT (test code=BILD) MG/DL 0.00-0.30 BILIRUBIN INDIRECT (test code=BILIND) MG/DL 0.2-1.2 SGOT/AST (test code=AST) Unit/L 15-37 SGPT/ALT (test code=ALT) Unit/L 12-78 ALKALINE PHOSPHATASE TOTAL (test code=ALKP) Unit/L 50-136 Last Dose Date: 09/25/18Last Dose Time: [id number] 13:32:00 Test Item Value Reference Range Comments ACETAMINOPHEN (test code=ACET) mcG/ML 10.0-30.0 Last Dose Date: 09/25/18 Dose Time: [id number] 13:32:00 Test Item Value Reference Range Comments ALCOHOL (test code=ALC) MG/DL 0-10 Last Dose Date: 09/25/18Las Dose Time: 699URINALYSIS [id number] 13:22: 00 Test Item Value Reference Range Comments UA COLOR (test code=COLU) YELLOW discript YEL/STRAW UA APPEARANCE (test code=APPU) CLEAR discript CLEAR UA GLUCOSE DIPSTICK (test code=DGLUU) NEGATIVE mg/dL NEG UA BILIRUBIN DIPSTICK (test code=BILU) NEGATIVE mg/dL NEG UA KETONE DIPSTICK (test code=KETU) TRACE mg/dL NEG UA SPECIFIC GRAVITY (test code=SGU) 1.020 SG 1.005-1.030 UA BLOOD DIPSTICK (test code=ANALIA) NEGATIVE mg/DL NEG UA PH DIPSTICK (test code=GLORIA) 6.0 pH UNITS 5.0-7.0 UA PROTEIN DIPSTICK (test code=PROU) TRACE mg/dL NEG UA UROBILINIOGEN DIPSTICK (test code=URO) 0.2 mg/dL <2.0 UA NITRITE DIPSTICK (test code=REBECCA) NEGATIVE SCREEN NEG UA LEUKOCYTE ESTERASE DIPSTICK (test NEGATIVE Leuk/mcL NEGATIVE code=LEUU) DRUGS OF ABUSE SCREEN [id number] 13:22:00 Test Item Value Reference Range Comments URN COCAINE (test code=COCAURN) SCcutoff <300 NG/ML URN CANNABINOIDS (test code=CANNABURN) SCcutoff <50 NG/ML URN AMPHETAMINE (test code=AMPHETURN) SCcutoff <1000 NG/ML URN BARBITURATE (test code=BARBITURN) SCcutoff <200 NG/ML URN BENZODIAZEPINE (test code=BENZOURN) SCcutoff <200 NG/ML URN OPIATES (test code=OPIATURN) SCcutoff <2000 NG/ML URN PHENCYCLIDINE (PCP) (test code=PHENCURN) SCcutoff <25 NG/ML URN METHADONE (test code=METHAURN) SCcutoff <300 NG/ML
--- NOTE | 2018-11-22 14:52 | RAD REPORT ---
EXAM DESCRIPTION: CT - Thorax Wo Con CLINICAL HISTORY: Chest pain PAIN COMPARISON: No comparisons FINDINGS: Bibasilar lung opacities are present likely representing atelectasis or aspiration/ pneumo sheng. Small bilateral pleural effusions, slightly greater on the right. No pneumothorax. No axillary, mediastinal or hilar adenopathy. No acute fracture is identified. No gross upper abdominal finding. All CT scans are performed using dose optimization technique as appropriate and may include automated exposure control or mA/KV adjustment according to patient size. IMPRESSION: Mild bibasilar linear lung opacities are present with small bilateral pleural effusions. These may represent areas of atelectasis or aspiration/ pneumonia.Findings are slightly worse in the right lung base. No acute fracture is identified.
--- NOTE | 2018-11-22 15:19 | ER ---
Nurse's Notes [facility] Name: Ignacio Espinal Age: 68 yrs Sex: Male : 1950 Arrival Date: 11/22/2018 Time: 14:03 Bed 23 Private MD: Paul Jerome Diagnosis: Fall on same level from slipping, tripping and stumbling;Other chest pain-musculoskeletal Presentation: 11/22 14:05 Presenting complaint: states: "He has been taking some heavy meds for his bipolar sv and he fell last week on ." Pt c/o left arm pain and right hand, neck and low back pain. Transition of care: patient was not received from another setting of care. Onset of symptoms was November 17, 2018. Care prior to arrival: None. 14:05 Method Of Arrival: Wheelchair sv 14:05 Acuity: BEE 4 sv 15:38 Risk Assessment: Do you want to hurt yourself or someone else? Patient reports no aj desire to harm self or others. Initial Sepsis Screen: Does the patient meet any 2 criteria? No. Patient's initial sepsis screen is negative. Does the patient have a suspected source of infection? No. Patient's initial sepsis screen is negative. Historical: - Allergies: 14:07 No Known Allergies; sv - PMHx: 14:07 Bipolar disorder; Hypertension; sv - PSHx: 14:07 Hernia repair; sv - Immunization history:: Adult Immunizations up to date. - Social history:: Smoking status: Patient/guardian denies using tobacco. - Ebola Screening: : Patient negative for fever greater than or equal to 101.5 degrees Fahrenheit, and additional compatible Ebola Virus Disease symptoms Patient denies exposure to infectious person Patient denies travel to an Ebola-affected area in the 21 days before illness onset No symptoms or risks identified at this time. Screenin:36 Abuse screen: Denies threats or abuse. Denies injuries from another. Nutritional aj screening: No deficits noted. Tuberculosis screening: No symptoms or risk factors identified. Fall Risk None identified. Assessment: 15:36 General: Appears in no apparent distress. comfortable, Behavior is calm, cooperative, aj appropriate for age. Pain: Complains of pain in right subscapular area and left subscapular area and chest and left breast and right breast and anterior aspect of left upper chest and anterior aspect of right upper chest. Neuro: Level of Consciousness is awake, alert, obeys commands, Oriented to person, place, time, situation, Appropriate for age. Respiratory: Airway is patent Respiratory effort is even, unlabored, Respiratory pattern is regular, symmetrical. Derm: Skin is intact, is healthy with good turgor, Skin is pink, warm \\T\\ dry. normal. Vital Signs: 14:07 BP 104 / 69; Pulse 87; Resp 18; Temp 99.0; Pulse Ox 96% ; Weight 74.84 kg; Height 5 ft. sv 7 in. (170.18 cm); Pain 8/10; 14:07 Body Mass Index 25.84 (74.84 kg, 170.18 cm) sv ED Course: 14:03 Patient arrived in ED. as 14:04 Paul Jerome MD is Private Physician. as 14:07 Triage completed. sv 14:07 Arm band placed on. sv 14:10 Amita Melendez, RN is Primary Nurse. aj 14:13 [facility]C [facility] kb 14:13 Aden Rushing MD is Attending Physician. kb 14:44 CT Chest Wo Con In Process Unspecified. EDMS 15:36 Patient has correct armband on for positive identification. aj 15:36 No provider procedures requiring assistance completed. Patient did not have IV access aj during this emergency room visit. Administered Medications: No medications were administered Outcome: 15:19 Discharge ordered by MD. kb 15:36 Discharged to home ambulatory, with family. aj 15:36 Condition: good 15:36 Discharge instructions given to patient, family, Instructed on discharge instructions, follow up and referral plans. Demonstrated understanding of instructions, follow-up care. 15:39 Patient left the ED. aj Signatures: Dispatcher [employer] EDMS Gaby Hamilton FNP-C FNP-Ckb Verde, Stephanie, RN RN sv Myers, Amanda, RN RN aj Martinez, Amelia as Corrections: (The following items were deleted from the chart) 14:09 14:07 Pulse 87bpm; Resp 18bpm; Pulse Ox 96%; Temp 99.0F; 74.84 kg; Height 5 ft. 7 in.; sv BMI: 25.8; Pain 8/10; sv
--- NOTE | 2018-11-22 15:19 | EDPHYS ---
Physician Documentation [facility] Name: Ignacio Espinal Age: 68 yrs Sex: Male : 1950 Arrival Date: 11/22/2018 Time: 14:03 Bed 23 Private MD: Paul Jerome ED Physician Aden Rushing HPI: 11/22 15:06 This 68 yrs old Male presents to ER via Wheelchair with complaints of Neck kb and Upper Back Pain. 15:06 Details of fall: The patient fell from an upright position, while standing. Onset: The kb symptoms/episode began/occurred last week. Associated injuries: The patient sustained upper back injury, pain with movement, injury to the chest, pain with movement. Severity of symptoms: At their worst the symptoms were moderate, in the emergency department the symptoms are unchanged. The patient has not experienced similar symptoms in the past. The patient has been recently seen by a physician: a psychiatrist, earlier today, with different complaint(s), and was sent to the [facility] for further evaluation. Family reports pt was in a very manic state a while ago and his psych dr put him on some heavy medication to sedate him. states he fell twice, once out of bed and once outside, last week because he was so drowsy. Pt reports he was moving a lot of heavy stuff while doing the yard also so he was working those muscles more than normal. Went to the psych today and he decreased the medications, but recommended the pt come get check out. Historical: - Allergies: 14:07 No Known Allergies; sv - PMHx: 14:07 Bipolar disorder; Hypertension; sv - PSHx: 14:07 Hernia repair; sv - Immunization history:: Adult Immunizations up to date. - Social history:: Smoking status: Patient/guardian denies using tobacco. - Ebola Screening: : Patient negative for fever greater than or equal to 101.5 degrees Fahrenheit, and additional compatible Ebola Virus Disease symptoms Patient denies exposure to infectious person Patient denies travel to an Ebola-affected area in the 21 days before illness onset No symptoms or risks identified at this time. ROS: 15:02 Constitutional: Negative for fever, chills, and weight loss, Respiratory: Negative for kb shortness of breath, cough, wheezing, and pleuritic chest pain, Abdomen/GI: Negative for abdominal pain, nausea, vomiting, diarrhea, and constipation, MS/Extremity: Negative for injury and deformity, Skin: Negative for injury, rash, and discoloration, Neuro: Negative for headache, weakness, numbness, tingling, and seizure. 15:02 Cardiovascular: Positive for chest pain, with movement, of the anterior aspect of right upper chest, anterior aspect of left upper chest, right breast and left breast. Exam: 15:02 Constitutional: This is a well developed, well nourished patient who is awake, alert, kb and in no acute distress. Head/Face: Normocephalic, atraumatic. Cardiovascular: Regular rate and rhythm with a normal S1 and S2. No gallops, murmurs, or rubs. Normal PMI, no JVD. No pulse deficits. Respiratory: Lungs have equal breath sounds bilaterally, clear to auscultation and percussion. No rales, rhonchi or wheezes noted. No increased work of breathing, no retractions or nasal flaring. Abdomen/GI: Soft, non-tender, with normal bowel sounds. No distension or tympany. No guarding or rebound. No evidence of tenderness throughout. Skin: Warm, dry with normal turgor. Normal color with no rashes, no lesions, and no evidence of cellulitis. MS/ Extremity: Pulses equal, no cyanosis. Neurovascular intact. Full, normal range of motion. Neuro: Awake and alert, GCS 15, oriented to person, place, time, and situation. Cranial nerves II-XII grossly intact. Motor strength 5/5 in all extremities. Sensory grossly intact. Cerebellar exam normal. Normal gait. 15:02 Chest/axilla: Inspection: normal, Palpation: tenderness, that is moderate, of the anterior aspect of right upper chest, anterior aspect of left upper chest, right breast and left breast, that totally reproduces the patient's complaints. 15:02 Back: pain, that is moderate, of the left subscapular area and right subscapular area. Vital Signs: 14:07 BP 104 / 69; Pulse 87; Resp 18; Temp 99.0; Pulse Ox 96% ; Weight 74.84 kg; Height 5 ft. sv 7 in. (170.18 cm); Pain 8/10; 14:07 Body Mass Index 25.84 (74.84 kg, 170.18 cm) sv MDM: 14:13 Patient medically screened. kb 15:02 Data reviewed: vital signs, nurses notes. Data interpreted: Pulse oximetry: on room air kb is 96 %. Interpretation: normal. Counseling: I had a detailed discussion with the patient and/or guardian regarding: the historical points, exam findings, and any diagnostic results supporting the discharge/admit diagnosis, radiology results, the need for outpatient follow up, a family practitioner, to return to the emergency department if symptoms worsen or persist or if there are any questions or concerns that arise at home. 15:05 ED course: Pt denies cough, congestion, fever. Reports history of "asbestos in lungs". kb 11/22 14:31 Order name: CT Chest Wo Con; Complete Time: 14:56 kb Administered Medications: No medications were administered Disposition: 11/23 12:10 Co-signature as Attending Physician, Aden Rushing MD I agree with the assessment and [facility] plan of care. Disposition: 11/22/18 15:19 Discharged to Home. Impression: Fall on same level from slipping, tripping and stumbling, Other chest pain - musculoskeletal. - Condition is Stable. - Discharge Instructions: Chest Wall Pain, [id number], Fall Prevention in the Home, [id number]. - Medication Reconciliation Form, Thank You Letter, Antibiotic Education, Prescription Opioid Use form. - Follow up: Emergency Department; When: As needed; Reason: Worsening of condition. Follow up: Private Physician; When: 2 - 3 days; Reason: Recheck today's complaints, Continuance of care, Re-evaluation by your physician. Signatures: Dispatcher [employer] EDCO Gaby Hamilton, SHAQUILLE MOORE-Saima Tillman, RN Amita Tenorio RN RN aj Anderson, Corey, MD MD [facility] Corrections: (The following items were deleted from the chart) 11/22 15:17 15:06 Family reports pt was in a very manic state a while ago and his psych dr put him kb on some heavy medication to sedate him. states he fell twice, once out of bed and once outside, last week because he was so drowsy. Pt reports he was moving a lot of heavy stuff while doing the yard also so he was working those muscles more than normal. Went to the psych today and he decreased the medications, but told the pt to come get checked out . kb 15:39 15:19 11/22/2018 15:19 Discharged to Home. Impression: Fall on same level from aj slipping, tripping and stumbling; Other chest pain - musculoskeletal. Condition is Stable. Forms are Medication Reconciliation Form, Thank You Letter, Antibiotic Education, Prescription Opioid Use. Follow up: Emergency Department; When: As needed; Reason: Worsening of condition. Follow up: Private Physician; When: 2 - 3 days; Reason: Recheck today's complaints, Continuance of care, Re-evaluation by your physician. kb
[2018-11-22 15:47] VITALS: BP 104/69; TEMP 99; O2SAT 96
== END 2018-11-22 15:39 | disposition home or self-care (01) ==
LOC: ER 14:01
DX: R07.89 Other chest pain (principal); M54.2 Cervicalgia; M54.6 Pain in thoracic spine; W01.0XXA Fall on same level from slipping, tripping and stumbling without subsequent striking against object, initial encounter; I10 Essential (primary) hypertension; F31.9 Bipolar disorder, unspecified
CPT/HCPCS: 71250; 99283

== ENCOUNTER 2021-06-14 14:21 | Emergency (ER) | payer OTHER ==
--- NOTE | 2021-06-14 16:21 | RAD REPORT ---
EXAM DESCRIPTION: CT - Head Brain Wo Cont - 06/14/2021 3:59 pm CLINICAL HISTORY: MENTAL STATUS CHANGE COMPARISON: Head Brain Wo Cont dated 10/26/2020HEAD BRAIN W O CONTRAST dated 07/01/2015 TECHNIQUE: Axial 5 mm thick images of the head were obtained without IV contrast. All CT scans are performed using dose optimization technique as appropriate and may include automated exposure control or mA/KV adjustment according to patient size. FINDINGS: No intracranial hemorrhage, mass, edema or shift of mid-line structures. No acute infarcti on changes seen. Atrophy changes are mild with ventricles in proportion. Chronic ischemic changes min imal. Arterial and physiologic calcifications are present. Mastoid air cells and visualized portions of the paranasal sinuses are clear. No acute bony findings. IMPRESSION: No acute intracranial finding. Mild atrophy and minimal chronic ischemic change not substantially different 2014.
[2021-06-14 16:39] LABS: Protime INR 0.99
[2021-06-14 16:51] LABS: Absolute Lymphocytes (CBC) 1.3 K/uL (0.7-4.9); Basophils % 0.4 % (0-1.3); MPV 7.9 fL (7.6-11.3); RBC Red Blood Cell Count 4.96 M/uL (4.33-5.43)
[2021-06-14 17:04] LABS: ALT/SGPT 18 U/L (12-78); AST/SGOT 20 U/L (15-37); Albumin 3.2 g/dL (3.4-5.0); Alkaline Phosphatase 65 U/L (45-117); BUN Blood Urea Nitrogen 14 mg/dL (7-18); Bicarbonate 28 mmol/L (21-32); Bilirubin Direct 0.1 mg/dL (0-0.2); Bilirubin Total 0.4 mg/dL (0.2-1.0); Glucose Level 100 mg/dL (74-106); Magnesium 1.9 mg/dL (1.8-2.4); NT PRO-BNP 504 pg/mL (<125); Potassium 4.5 mmol/L (3.5-5.1); Protein, Total 8.1 g/dL (6.4-8.2); Sodium Level 136 mmol/L (136-145); Troponin (Emerg Dept Use Only) < 0.02 ng/mL (0.0-0.045)
--- NOTE | 2021-06-14 17:13 | RAD REPORT ---
EXAM DESCRIPTION: RAD - Chest Single View - 06/14/2021 5:00 pm CLINICAL HISTORY: AMS COMPARISON: Chest exam June 2018 TECHNIQUE: AP portable chest image was obtained 06/14/2021 5:00 pm . FINDINGS: No acute lung parenchymal process identified. No failure or volume overload seen. There is reduced volume in the right hemithorax which accentuates the lung markings in creates atelectasis. N o convincing evidence for a true right hemithorax finding. Heart and vasculature are normal. No measu rable pleural effusion and no pneumothorax. No acute bone findings seen. Old rib deformities and clav icle deformity noted on the right. No acute aortic findings suspected. IMPRESSION: No acute cardiopulmonary process.
[2021-06-14 17:28] LABS: Thyroid Stimulating Hormone 0.206 uIU/mL (0.360-3.740); Valproic Acid (Depakene) Level 81.6 ug/mL (50-100)
[2021-06-14 18:13] LABS: Urine Blood Negative (Negative); Urine Glucose Negative (Negative); Urine Protein Negative (Negative); Urine Specific Gravity >=1.030 (1.005-1.030); Urine pH 5.5 (5.0-7.0)
[2021-06-14 18:26] LABS: Urine Bacteria <20 /HPF (NONE SEEN); Urine RBC <5 /HPF (NONE SEEN)
[2021-06-14 19:08] LABS: Blood Morphology Comment NOT SEEN (NOT SEEN); Platelet Estimate ADEQ; White Blood Cell Scan OK (OK)
--- NOTE | 2021-06-14 19:16 | ER ---
Nurse's Notes [facility] Name: Ignacio Espinal Age: 71 yrs Sex: Male : 1950 Arrival Date: 06/14/2021 Time: 14:25 Bed 8 Private MD: Paul Jerome Diagnosis: Unspecified adverse effect of drug or medicament Presentation: 06/14 14:48 Chief complaint: Parent and/or Guardian states: has been on Depakote for bipolar , iw started having tremors so his psychiatrist added on Trileptal last Wednesday, increased trileptal to BID on Wednesday , yesterday he was more sleepy than usual, increased tremors and dizziness, today while she was driving pt was not responding to her and sounded like he was gasping for air, pt does not remember what happened, states he just feels more weak and feels like he's in a fog , is due to follow up with psychiatrist on . Coronavirus screen: At this time, the client does not indicate any symptoms associated with coronavirus-19. Ebola Screen: Patient negative for fever greater than or equal to 101.5 degrees Fahrenheit, and additional compatible Ebola Virus Disease symptoms Patient denies exposure to infectious person. Patient denies travel to an Ebola-affected area in the 21 days before illness onset. No symptoms or risks identified at this time. Initial Sepsis Screen: Does the patient meet any 2 criteria? No. Patient's initial sepsis screen is negative. Does the patient have a suspected source of infection? No. Patient's initial sepsis screen is negative. Risk Assessment: Do you want to hurt yourself or someone else? Patient reports no desire to harm self or others. Onset of symptoms was June 14, 2021. 14:48 Method Of Arrival: Ambulatory iw 14:48 Acuity: BEE 3 iw Historical: - Allergies: 15:03 No Known Allergies; iw - Home Meds: 15:03 Metoprolol Tartrate Oral [Active]; Depakote Oral [Active]; Eliquis 2.5 mg oral tab iw [Active]; pravastatin 40 mg oral tab 1 tab once daily [Active]; levothyroxine oral [Active]; - PMHx: 15:03 Bipolar disorder; Hypertension; DVT; Hypothyroidism; iw - PSHx: 15:03 Cholecystectomy; iw - Immunization history:: Client reports having NOT received the Covid vaccine. - Social history:: Smoking status: Patient/guardian denies using tobacco. Screenin:46 Abuse screen: Denies threats or abuse. Nutritional screening: No deficits noted. as6 Tuberculosis screening: No symptoms or risk factors identified. Fall Risk None identified. Assessment: 15:15 General: Appears in no apparent distress. comfortable, Behavior is calm, cooperative. as6 Pain: Denies pain. Neuro: Level of Consciousness is awake, alert, obeys commands, Oriented to person, place, situation. Cardiovascular: Capillary refill < 3 seconds Patient's skin is warm and dry. Respiratory: Airway is patent Respiratory effort is even, unlabored, Respiratory pattern is regular, symmetrical. Derm: Skin is intact. Musculoskeletal: Reports weakness in generalized weakness. 18:40 Reassessment: Patient and/or family updated on plan of care and expected duration. Pain as6 level reassessed. Patient is alert, oriented x 3, equal unlabored respirations, skin warm/dry/pink. 19:25 Reassessment: Patient appears in no apparent distress at this time. Patient reports lp1 readiness for discharge, daughter at bedside. Neuro: Gait is steady. Vital Signs: 14:48 BP 134 / 88; Pulse 54; Resp 16; Temp 98.0; Pulse Ox 100% on R/A; Weight 71.21 kg; iw Height 5 ft. 7 in. (170.18 cm); 15:30 BP 122 / 67; Pulse 59; Resp 15 S; Pulse Ox 100% on R/A; as6 17:41 BP 125 / 92; Pulse 68; Resp 16 S; Pulse Ox 100% on R/A; as6 18:38 BP 109 / 96; Pulse 74; Resp 13 S; Pulse Ox 100% on R/A; as6 19:25 BP 109 / 84; Pulse 68; Resp 18; Pulse Ox 99% on R/A; lp1 14:48 Body Mass Index 24.59 (71.21 kg, 170.18 cm) iw ED Course: 14:25 Patient arrived in ED. am2 14:26 Paul Jerome MD is Private Physician. am2 14:59 Sascha Cruz, ZAFAR is Primary Nurse. as6 15:03 Triage completed. iw 15:10 Tacho Bautista NP is PHCP. pm1 15:10 Aden Rushing MD is Attending Physician. pm1 15:59 CT Head Brain wo Cont In Process Unspecified. EDMS 16:00 Inserted saline lock: 22 gauge in right antecubital area, using aseptic technique. as6 Blood collected. 16:16 Arm band placed on. iw 17:00 XRAY Chest (1 view) In Process Unspecified. EDMS 17:47 Patient has correct armband on for positive identification. Bed in low position. Call as6 light in reach. Side rails up X2. Adult w/ patient. satellite project site monitor on. Pulse ox on. NIBP on. 19:26 No provider procedures requiring assistance completed. IV discontinued, No lp1 redness/swelling at site. Pressure dressing applied. Administered Medications: No medications were administered Outcome: 19:16 Discharge ordered by MD. pm1 19:26 Discharged to home ambulatory, with family. lp1 19:26 Condition: good 19:26 Discharge instructions given to patient, family, Instructed on discharge instructions, follow up and referral plans. Demonstrated understanding of instructions, follow-up care. 19:27 Patient left the ED. lp1 Signatures: Dispatcher [employer] EDMS Maira Berry RN RN iw Treasure Holley RN RN lp1 Tacho Bautista NP INSULATION EXTRUDER OPERATOR pm1 Amita Schmidt am2 Sascha Cruz RN RN as6 Corrections: (The following items were deleted from the chart) 15:04 15:03 PMHx: Hypoglycemia; iw iw
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
[2021-06-14 19:40] VITALS: TEMP 98
[2021-06-14 19:45] VITALS: BP 109/84; O2SAT 99
--- OUTSIDE RECORDS SUMMARY | 2021-06-15 00:02 | XMS REPORT | Continuity of Care Document ---
:1950 Author Organization [facility] t Address [address] [place] [address] Care Team Providers Name Role Phone Kevin Jerome MD Primary Care Physician YADY K.H. Attending Clinician Unavailable Kevin Jerome MD Attending Clinician Michele SHORT Attending Clinician Unavailable Fabrizio Mackey MD Attending Clinician FABRIZIO MACKEY Attending Clinician Unavailable KEVIN JEROME Attending Clinician Unavailable AMENA Attending Clinician Unavailable Anselmo PEREA Attending Clinician Unavailable Armando CARLSON Attending Clinician Unavailable DMITRY Attending Clinician Unavailable YVONNE Attending Clinician Unavailable Payers Payer Name Policy Type Policy Number Effective Date Expiration Date Stefany ashley [employer] [id number] 2019 MEDICARE ADVANTAGE 00:00:00 [facility] [id number] 2019 HEALTHCARE/AARP 00:00:00 Advance Directives Directive Decision Effective Termination Comments Source Date Date Healthcare Agents on N/A [facility] Agent Medical RelationshipCommunicationCatherine [facility] Care [phone] (Mobile) [email or web address] Condition Condition Condition Status Onset Resolution Last Treating Co mments Source Name Details Category Date Date Treatment Clinician Date Abdominal Abdominal Disease Active 2020-0 Uni vers pain pain 04-20 ity of 00:00: [place] 00 Medical Branch Generalize Generalize Disease Active 2020-0 Overview : Univers d d 04-20 Formattin ity of abdominal abdominal 00:00: [place] pain pain 00 note Medical might be Branch different from the original. Added automatic ally from request for surgery [id number] Fever, Fever, Disease Active 2020- Overview: Univer s unspecifie unspecifie 04-20 Formattin ity of d fever d fever 00:00: g of this [place] cause cause 00 note Medical might be Branch different from the original. Added automatic ally from request for surgery [id number] Other Other Disease Active Overview: Univer s specified specified 04-20 Formattin i ty of hypotensio hypotensio 00:00: g of this [place] n n 00 note Medical might be Branch different from the original. Added automatic ally from request for surgery [id number] Elevated Elevated Disease Active 2020-0 Unive rs LFTs LFTs 8-18 ity of 00:00: [place] 00 Medical Branch Altered Altered Disease Active 2020-0 Univers mental mental 3-04 ity of state state 00:00: 00 Medical Branch Hypotensio Hypotensio Disease Active 2020-0 U nivers n n 3-04 ity of 00:00: [place] 00 Medical Branch Fever Fever Disease Active 2019- Univers 1-25 ity of 00:00: [place] [facility] Cholecysti Cholecysti Disease Active 2019- U nivers tis tis 1-10 ity of 00:00: [place] 00 Medical Branch Essential Essential Disease Active 2019-0 Uni vers hypertensi hypertensi 1-16 it y of on on 00:00: [place] 00 Medical Branch Acquired Acquired Disease Active 2019-0 Unive rs hypothyroi hypothyroi 1-16 it y of dism dism 00:00: 00 Medical Branch Hyperchole Hyperchole Disease Active 2019-0 U nivers sterolemia sterolemia 1-16 it y of 00:00: [place] 00 Medical Branch Bipolar 1 Bipolar 1 Disease Active 2019-0 Uni vers disorder disorder 1-16 ity of 00:00: [place] 00 Medical Branch Allergies, Adverse Reactions, Alerts Allergy Allergy Status Severity Reaction(s) Onset Inactive Treating Comm ents Source Name Type Date Date Clinician No Known DA Active U 2007-0 [facility] 8[facility]27 [place] [facility] No Known DA Active U 2007-0 [facility] Contrast 8-27 [place] All[facility]ie [facility] No Known DA Active U 2007[facility]0 [facility] [place] [facility] No Known DA Active U 2007-0 [facility] Food 8-27 [place] All[facility]ie [facility] No Known DA Active U 2007-0 [facility] Other 8- [place] [facility] NO KNOWN Drug Active Univers ALLERGIE Class ity of S [facility] Social History Social Habit Start Date Stop Date Quantity Comments Source History SDAR University o f Alcohol Frequency [place] M edical Branch History SDAR University o f Alcohol Std [place] Medical Drinks Branch History [facility] University o f Alcohol Binge [place] Medic al Branch History of Chews Tobacco University of tobacco use [facility] Alcohol intake 2021-04-28 2021-04-28 Current drinker Unive rsity of 00:00:00 00:00:00 of alcohol [place] Medical (finding) Branch Tobacco use and 2020-09-02 2020-09-02 Current user Univers ity of exposure 00:00:00 00:00:00 [place] [facility] History [facility] 2019-06-27 2019-06-27 5 University o f Financial 00:00:00 00:00:00 [place] [facility] History [facility] Food 2019-06-12 2019-06-12 1 Univers ity of Worry 00:00:00 00:00:00 [place] [facility] History [facility] Food 2019-06-12 2019-06-12 1 Univers ity of Scarcity 00:00:00 00:00:00 [place] [facility] History [facility] 2019-06-12 2019-06-12 2 University o f Transport Med 00:00:00 00:00:00 [place] Medic al Branch History [facility] 2019-06-12 2019-06-12 2 University o f Transport Non-Med 00:00:00 00:00:00 [facility] edical Branch Alcohol Comment 2018-08-17 2018-08-17 occ Universit y of 00:00:00 00:00:00 [facility] Sex Ass[birth year] Universit y of 00:00:00 00:00:00 [facility] Smoking Status Start Date Stop Date Source Former smoker 2020-09-02 00:00:00 2020[facility] [place] [facility] Medications Ordered Filled Start Stop Current Ordering Indication Dosage Frequency Signature Comments Components Source Medication Medication Date Date Medication? Clinician (SIG) Name Name apixaban Yes [id number] 2.5mg Take 1 Univer s 2.5 mg 8-06 tablet by ity of tablet 00:00: mouth 2 [place] (two) Medical times Branch daily. Indication s: DVT prevention apixaban Yes 1475 2.5mg Take 1 Univer s 2.5 mg 8-06 tablet by ity of tablet 00:00: mouth 2 [place] (two) Medical times Branch daily. Indication s: DVT prevention apixaban Yes 1475 2.5mg Take 1 Univer s 2.5 mg 8-06 tablet by ity of tablet 00:00: mouth 2 [place] (two) Medical times Branch daily. Indication s: DVT prevention metoprolol Yes [id number] 25mg Take 1 Univers succinate 7-16 tablet by ity o f XL 25 mg 24 00:00: mouth [place] hr tablet 00 daily. Medical Branch metoprolol Yes [id number] 25mg Take 1 Univers succinate 7-16 tablet by ity o f XL 25 mg 24 00:00: mouth [place] hr tablet 00 daily. Medical Branch metoprolol Yes [id number] 25mg Take 1 Univers succinate 7-16 tablet by ity o f XL 25 mg 24 00:00: mouth [place] hr tablet 00 daily. Medical Branch LEVOTHYROXI Yes [id number] TAKE 1 Univers NE 25 mcg 7-07 TABLET BY ity o f tablet 00:00: MOUTH IN [place] 00 THE Medical MORNING Branch LEVOTHYROXI Yes [id number] TAKE 1 Univers NE 25 mcg 7-07 TABLET BY ity o f tablet 00:00: MOUTH IN [place] THE Medical MORNING Branch LEVOTHYROXI Yes [id number] TAKE 1 Univers NE 25 mcg 7-07 TABLET BY ity o f tablet 00:00: MOUTH IN [place] 00 THE Medical MORNING Branch pravastatin 2020-0 Yes [id number] 40mg Take 1 Univers 40 mg 4-01 tablet by ity of tablet 00:00: mouth at [place] 00 bedtime. Medical Branch pravastatin 2020-0 Yes [id number] 40mg Take 1 Univers 40 mg 4-01 tablet by ity of tablet 00:00: mouth at [place] 00 bedtime. Medical Branch pravastatin 2020-0 Yes [id number] 40mg Take 1 Univers 40 mg 4-01 tablet by ity of tablet 00:00: mouth at [place] 00 bedtime. Medical Branch benztropine 2018-08 Yes [id number] 2mg Take 1 Univers 2 mg tablet 1-20 tablet by ity of 00:00: mouth at [place] [address] bedtime. Medical Branch divalproex 2018-08 Yes [id number] 1000mg Take 2 Univers ER 500 mg 1-20 tablets by ity of 24 hr 00:00: mouth [place] tablet 00 every 24 Medical ([facility] ur) hours. benztropine 2018-08 Yes [id number] 2mg Take 1 Univers 2 mg tablet 1-20 tablet by ity of 00:00: mouth at [place] 00 bedtime. Medical Branch divalproex 2018-08 Yes [id number] 1000mg Take 2 Univers ER 500 mg 1-20 tablets by ity of 24 hr 00:00: mouth [place] tablet 00 every 24 Medical (twenty-fo Branch ur) hours. benztropine 2018-08 Yes [id number] 2mg Take 1 Univers 2 mg tablet 1-20 tablet by ity of 00:00: mouth at [place] [address] bedtime. Medical Branch divalproex 2018-08 Yes [id number] 1000mg Take 2 Univers ER 500 mg 1-20 tablets by ity of 24 hr 00:00: mouth [place] tablet 00 every 24 Medical (twenty-fo Branch ur) hours. Immunizations Ordered Filled Immunization Date Status Comments [facility] e Immunization Name Name Influenza High Dose 2020-05-01 Completed Unive rsity of [place] 00:00:00 [facility] Influenza High Dose 2020-05-01 Completed Unive rsity of [place] 00:00:00 [facility] Influenza High Dose 2020-05-01 Completed Unive rsity of [place] 00:00:00 [facility] Influenza High Dose 2019-06-21 Completed Unive rsity of 00:00:00 [facility] Influenza High Dose 2019-06-21 Completed Unive rsity of 00:00:00 [facility] Influenza High Dose 2019-06-21 Completed Unive rsity of 00:00:00 [facility] Pneumococcal 2018-05-03 Completed University o f Polysaccharide, 00:00:00 [place] Med ical PPSV23 (PNEUMOVAX) Branch Pneumococcal 2018-05-03 Completed University o f Polysaccharide, 00:00:00 [place] Med ical PPSV23 (PNEUMOVAX) Branch Pneumococcal 2018-05-03 Completed University o f Polysaccharide, 00:00:00 [place] Med ical PPSV23 (PNEUMOVAX) Branch Pneumococcal 2017-04-11 Completed University o f Polysaccharide, 00:00:00 [place] Med ical PPSV23 (PNEUMOVAX) Branch Pneumococcal 2017-04-11 Completed University o f Polysaccharide, 00:00:00 [place] Med ical PPSV23 (PNEUMOVAX) Branch Pneumococcal 2017-04-11 Completed University o f Polysaccharide, 00:00:00 [place] Med ical PPSV23 (PNEUMOVAX) Branch Pneumococcal 13 2016 Completed Universit y of Conjugate, PCV13 00:00:00 [facility] dical (Prevnar 13) Branch Pneumococcal 13 2016 Completed Universit y of Conjugate, PCV13 00:00:00 [place] Me dical (Prevnar 13) Branch Pneumococcal 13 2016 Completed Universit y of Conjugate, PCV13 00:00:00 [facility] dical (Prevnar 13) Branch Vital Signs Vital Name Observation Time Observation Value Comments Source Systolic blood 2021-04-28 15:13:00 140 mm[Hg] Univer sity of pressure [facility] Diastolic blood 2021-04-28 15:13:00 91 mm[Hg] Unive rsity of pressure [facility] Heart rate 2021-04-28 15:13:00 89 /min [facility] Body temperature 2021-04-28 15:13:00 37.17 [facility] 2021-04-28 15:13:00 16 /min [facility] Body height 2021-04-28 15:13:00 170.2 cm [facility] Body weight 2021-04-28 15:13:00 67.405 kg [facility] BMI 2021-04-28 15:13:00 23.27 kg/m2 [facility] Procedures This patient has no known procedures. Encounters Start End Encounter Admission Attending Care Care Encounter Source Date/Time Date/Time Type Type Clinicians Facility Department ID 2021-05-30 Emergency [facility] [id number] [facility] [id number] [facility] 2021-10-31 2021-10-31 Outpatient Roseann CONTEH [facility] [id number] Univers 11:00:00 11:00:00 SENDIL [id number] [facility] 2021-10-31 2021-10-31 Outpatient Roseann CONTEH [facility] [id number] Univers 11:00:00 11:00:00 SENDIL [facility] 2021-10-27 2021-10-27 Outpatient Roseann CONTEH [facility] [id number] Univers 13:00:00 13:00:00 SENDIL [id number] [facility] 2021-10-27 2021-10-27 Outpatient Roseann CONTEH [facility] [id number] Univers 13:00:00 13:00:00 SENDIL [facility] 2021-05-20 2021-05-[id number] Univers 00:00:00 00:00:00 [facility] [id number] it y of [place] [id number] Brian as Delroy?Blea [phone] [address] Medical Office [facility] 2021-05-15 2021-05-15 [id number] Univers 00:00:00 00:00:00 [facility] [id number] it y of [place] [id number] Brian as [place]?Blea [id number] [address] Medical Office [facility] 2021-05-02 2021-05-02 Outpatient R HANPAMELA [facility] [id number] Univers 13:00:00 13:00:00 [id number] [facility] 2021-04-28 2021-04-28 Outpatient R [facility] [id number] Univers 12:30:00 12:30:00 [id number] [facility] 2021-04-28 2021-04-28 Office Narendra, CARLYIT [id number] Univers 10:03:59 11:03:[address] [facility] [id number] ity of [facility] [id number] [place] [id number] [address] 2021-04-28 2021-04-28 Outpatient R NARENDRA [facility] [id number] Univers 10:30:00 10:30:00 YASMANI [facility] 2021-03-28 2021-03-28 Outpatient R YADY [facility] [id number] Univers 11:30:00 11:30:00 SENDIL [id number] [facility] 2021-03-24 2021-03-24 [id number] Univers 11:30:00 11:30:00 SENDIL [id number] [facility] 2021-02-13 2021-02-13 [facility] [id number] Univers 13:30:00 13:30:00 SENDIL [id number] [facility] 2021-02-13 2021-02-13 Outpatient R YADY [facility] [id number] Univers 13:30:00 13:30:00 [facility] 2020-10-31 2020-10-31 [facility] [id number] Univers 10:30:00 10:30:00 SENDIL [id number] [facility] 2020-10-31 2020-10-31 Outpatient R YADY [facility] [id number] Univers 10:30:00 10:30:00 [facility] 2020-10-29 2020-10-29 Outpatient R [facility] [id number] Univers 08:00:00 08:00:00 [id number] [facility] 2020-10-29 2020-10-29 Outpatient R BELEN [facility] [id number] Univers 08:00:00 08:00:00 AGUSTO [facility] 2020-10-08 2020-10-08 Outpatient R AMENA [facility] [id number] Univers 11:00:00 11:00:00 REBECCA ity o f [facility] 2020-09-04 2020-09-04 Outpatient R [facility] [id number] Univers 14:00:00 14:00:00 [id number] [facility] 2020-09-04 2020-09-04 Outpatient R YADY [facility] [id number] Univers 14:00:00 14:00:00 SENDIL [facility] 2020-09-02 2020-09-02 Outpatient R YADY [facility] [id number] Univers 13:30:00 13:30:00 SENDIL [id number] [facility] 2020-09-02 2020-09-02 Outpatient R YADY [facility] [id number] Univers 13:30:00 13:30:00 SENDIL [facility] 2020-08-27 2020-08-27 Outpatient R [facility] [id number] Univers 09:30:00 09:30:00 [id number] [facility] 2020-08-27 2020-08-27 Outpatient R ELIAZAR [facility] [id number] Univers 09:30:00 09:30:00 ESME ity o f [facility] 2020-08-21 2020-08-21 Outpatient R BELEN [facility] [id number] Univers 11:00:00 11:00:00 AGUSTO [id number] [facility] 2020-08-21 2020-08-21 Outpatient R BELEN [facility] [id number] Univers 11:00:00 11:00:00 AGUSTO [facility] 2020-07-23 2020-07-23 Outpatient R [facility] [id number] Univers 10:00:00 10:00:00 [id number] ity of [facility] 2020-05-29 2020-05-29 Outpatient R BELEN [facility] [id number] Univers 13:30:00 13:30:00 AGUSTO [id number] ity of [facility] 2020-05-29 2020-05-29 Outpatient R BELEN [facility] [id number] Univers 13:30:00 13:30:00 AGUSTO ity of [facility] 2020-05-01 2020-05-01 Outpatient BELEN [facility] [id number] Univers 13:45:00 13:45:00 AGSUTO ity of [facility] 2020-05-01 2020-05-01 Outpatient R BELEN [facility] [id number] Univers 13:45:00 13:45:00 AGUSTO ity [facility] [place] [facility] 2020-04-01 2020-04-01 Outpatient R [facility] [id number] Univers 13:00:00 13:00:00 [id number] ity of [facility] 2020-04-01 2020-04-01 Outpatient R [facility] [id number] Univers 13:00:00 13:00:00 ity of [facility] 2020-03-19 2020-03-19 Outpatient R [facility] [id number] Univers 10:30:00 10:30:00 [id number] ity of [facility] 2020-03-19 2020-03-19 Outpatient R [facility] [id number] Univers 10:30:00 10:30:00 ity of [facility] 2020-02-14 2020-02-14 Outpatient R [facility] [id number] Univers 10:00:00 10:00:00 [id number] ity [facility] [place] [facility] 2020-02-14 2020-02-14 Outpatient R CONTEH [facility] [id number] Univers 10:00:00 10:00:00 SENDIL ity [facility] [place] [facility] 2020-02-06 2020-02-06 Outpatient R BELEN [facility] [id number] Univers 11:15:00 11:15:00 AGUSTO ity [facility] [place] [facility] 2020-02-06 2020-02-06 [facility] [id number] Univers 11:15:00 11:15:00 AGUSTO pancho [facility] [place] [facility] 2019-12-12 2019-12-12 Outpatient Roseann JEROME [facility] [id number] Univers 09:00:00 09:00:00 AGUSTO pancho [facility] [place] [facility] 2019-12-12 2019-12-12 Outpatient [facility] [id number] Univers 08:00:00 08:00:00 [id number] [facility] 2019-11-27 2019-11-27 Outpatient Roseann JEROME [facility] [id number] Univers 10:00:00 10:00:00 AGUSTO [facility] 2019-11-23 2019-11-23 Outpatient Roseann CARLSON [facility] [id number] Univers 14:30:00 14:30:00 LETTY [facility] 2019-11-16 2019-11-16 Outpatient Roseann JEROME [facility] [id number] Univers 10:00:00 10:00:00 AGUSTO [id number] [facility] 2019-11-15 2019-11-15 Outpatient Roseann JEROME [facility] [id number] Univers 10:15:00 10:15:00 AGUSTO [id number] [facility] 2019-11-15 2019-11-15 Outpatient Roseann JEROME [facility] [id number] Univers 10:15:00 10:15:00 AGUSTO [facility] 2019-10-16 2019-10-16 Outpatient Roseann BELEN [facility] [id number] Univers 10:00:00 10:00:00 AGUSTO pancho [facility] [place] [facility] 2019-08-28 2019-08-28 Outpatient Roseann BELEN [facility] [id number] Univers 09:00:00 09:13:37 AGUSTO [facility] 2019-08-08 2019-08-08 Outpatient Roseann ANDRES [facility] [id number] Univers 16:15:00 16:41:26 RAJESH [facility] 2019-07-17 2019-07-17 Outpatient Roseann ANDRES [facility] [id number] Univers 09:30:00 10:03:21 RAJESH [facility] 2019-07-11 2019-07-11 Outpatient Roseann ANDRES [facility] [id number] Univers 14:00:00 14:00:00 RAJESH pancho [facility] [place] [facility] 2019-07-06 2019-07-06 Outpatient Roseann ANDRES [facility] [id number] Univers 15:45:00 15:55:19 RAJESH pancho [facility] [place] [facility] 2019-07-03 2019-07-03 Outpatient Roseann ANDRES [facility] [id number] Univers 09:15:00 09:15:00 RAJESH [facility] 2019-06-05 2019-06-05 Outpatient Roseann RUSSELL [facility] [id number] Univers 13:00:00 13:00:00 [facility] 2019-05-17 2019-05-17 Outpatient Roseann RUSSELL [facility] [id number] Univers 14:00:00 16:50:02 [facility] Results Test Description Test Time Test Comments Results Result Comments Source CBC W/AUTO DIFF 2018-09-26 20:24:00 Test Item Value Reference Range Interpretation Comme nts WHITE BLOOD CELL (test code = 5.3 K/mm3 3.5-11.0 N WBC) RED BLOOD CELL (test code = RBC) 4.60 M/mm3 4.70-6.10 L HEMOGLOBIN (test code = HGB) 13.4 G/DL 12.3-15.9 N HEMATOCRIT (test code = HCT) 38.9 % 35.8-46.7 N MEAN CELL VOLUME (test code = 84.6 Fl 86.3-98.9 L MCV) MEAN CELL HGB (test code = MCH) 29.1 pg 28.9-34.4 N MEAN CELL HGB CONCETRATION (test 34.4 G/DL 32.1-34.5 N code = MCHC) RED CELL DISTRIBUTION WIDTH 14.0 SD 11.5-14.5 N (test code = RDW) PLATELET COUNT (test code = PLT) 194.0 K/mm3 150-450 N MEAN PLATELET VOLUME (test code 9.30 fL 7.0-9.6 N = MPV) NEUTROPHIL % (test code = NT%) 50.5 % 40-76 N LYMPHOCYTE % (test code = LY%) 37.2 % 20.5-51.1 N MONOCYTE % (test code = MO%) 10.9 % 1.7-9.3 H EOSINOPHIL % (test code = EO%) 0.6 % 0.0-6.0 N BASOPHIL % (test code = BA%) 0.8 % 0.0-2.0 N NEUTROPHIL # (test code = NT#) 2.69 K/mm3 1.8-7.6 N LYMPHOCYTE # (test code = LY#) 2.0 K/mm3 0.6-3.0 N MONOCYTE # (test code = MO#) 0.6 K/mm3 0.2-1.5 N EOSINOPHIL # (test code = EO#) 0.0 K/mm3 0.0-0.4 N BASOPHIL # (test code = BA#) 0.0 K/mm3 0.0-0.2 N MANUAL DIFF REQUIRED (test code NO DIFF/SCN CRITERIA SLIDE REVIEW CONSISTANT WITH = MDIFF) AUTO DIFFERENTI AL. CBC W/AUTO [id number] 17:21:00 Test Item Value Reference Range Interpretation Comments WHITE BLOOD CELL (test code = 5.3 K/mm3 3.5-11.0 N WBC) RED BLOOD CELL (test code = RBC) 4.60 M/mm3 4.70-6.10 L HEMOGLOBIN (test code = HGB) 13.4 G/DL 12.3-15.9 N HEMATOCRIT (test code = HCT) 38.9 % 35.8-46.7 N MEAN CELL VOLUME (test code = 84.6 Fl 86.3-98.9 L MCV) MEAN CELL HGB (test code = MCH) 29.1 pg 28.9-34.4 N MEAN CELL HGB CONCETRATION (test 34.4 G/DL 32.1-34.5 N code = MCHC) RED CELL DISTRIBUTION WIDTH (test 14.0 SD 11.5-14.5 N code = RDW) PLATELET COUNT (test code = PLT) 194.0 K/mm3 150-450 N MEAN PLATELET VOLUME (test code = 9.30 fL 7.0-9.6 N MPV) NEUTROPHIL % (test code = NT%) 50.5 % 40-76 N LYMPHOCYTE % (test code = LY%) 37.2 % 20.5-51.1 N MONOCYTE % (test code = MO%) 10.9 % 1.7-9.3 H EOSINOPHIL % (test code = EO%) 0.6 % 0.0-6.0 N BASOPHIL % (test code = BA%) 0.8 % 0.0-2.0 N NEUTROPHIL # (test code = NT#) 2.69 K/mm3 1.8-7.6 N LYMPHOCYTE # (test code = LY#) 2.0 K/mm3 0.6-3.0 N MONOCYTE # (test code = MO#) 0.6 K/mm3 0.2-1.5 N EOSINOPHIL # (test code = EO#) 0.0 K/mm3 0.0-0.4 N BASOPHIL # (test code = BA#) 0.0 K/mm3 0.0-0.2 N MANUAL DIFF REQUIRED (test code = DIFF/SCN CRITERIA MDIFF) BASIC METABOLIC [id number] 13:49:00 Test Item Value Reference Range Interpretation Comments SODIUM (test code = NA) 140 mmol/L 134-147 N POTASSIUM (test code = 3.5 mmol/L 3.4-5.0 N K) CHLORIDE (test code = 107 mmol/L 100-108 N CL) CARBON DIOXIDE (test 25 mmol/L 21-32 N code = CO2) ANION GAP (test code = 8.0 GAP calc 4.0-15.0 N GAP) GLUCOSE (test code = 71 MG/DL 70-110 N GLU) BLOOD UREA NITROGEN 13 MG/DL 7-18 N (test code = BUN) GLOMERULAR FILTRATION >=60 max estimate >60 RATE (test code = GFR) estGFR CREATININE (test code = 0.9 MG/DL 0.8-1.3 N CREAT) CALCIUM (test code = CA) 8.3 MG/DL 8.5-10.1 L Last Dose Date: 09/25/18Last Dose Time: 0700HEPATIC FUNCTION [id number] 13:49:00 Test Item Value Reference Range Interpretation Comments TOTAL PROTEIN (test code = PROT) 7.7 G/DL 6.4-8.2 N ALBUMIN (test code = ALB) 3.6 G/DL 3.4-5.0 N BILIRUBIN TOTAL (test code = 0.30 MG/DL 0.2-1.2 N BILT) BILIRUBIN DIRECT (test code = < 0.10 MG/DL 0.00-0.30 N BILD) BILIRUBIN INDIRECT (test code = 0.20 MG/DL 0.2-1.2 N BILIND) SGOT/AST (test code = AST) 32 Unit/L 15-37 N SGPT/ALT (test code = ALT) 27 Unit/L 12-78 N ALKALINE PHOSPHATASE TOTAL (test 69 Unit/L 50-136 N code = ALKP) Last Dose Date: 09/25/18Las Dose Time: [id number] 13:49:00 Test Item Value Reference Range Interpretation Comments ACETAMINOPHEN (test code = ACET) > 2.0 mcG/ML 10.0-30.0 L Last Dose Date: 09/25/18 Dose Time: [id number] 13:49:00 Test Item Value Reference Range Interpretation Comments ALCOHOL (test code = ALC) < 3 MG/DL 0-10 N Last Dose Date: 09/25/18 Dose Time: [id number] 13:44:00 Test Item Value Reference Range Interpretation Comments SALICYLATE (test code = ADRIANA) < 1.7 MG/DL 2.8-20.0 THER L URINALYSIS [id number] 13:41:00 Test Item Value Reference Range Interpretation Comments UA COLOR (test code = COLU) YELLOW discript YEL/STRAW UA APPEARANCE (test code = CLEAR discript CLEAR APPU) UA GLUCOSE DIPSTICK (test NEGATIVE mg/dL NEG code = DGLUU) UA BILIRUBIN DIPSTICK (test NEGATIVE mg/dL NEG code = BILU) UA KETONE DIPSTICK (test TRACE mg/dL NEG code = KETU) UA SPECIFIC GRAVITY (test 1.020 SG 1.005-1.030 code = SGU) UA BLOOD DIPSTICK (test NEGATIVE mg/DL NEG code = ANALIA) UA PH DIPSTICK (test code = 6.0 pH UNITS 5.0-7.0 GLORIA) UA PROTEIN DIPSTICK (test TRACE mg/dL NEG A code = PROU) UA UROBILINIOGEN DIPSTICK 0.2 mg/dL <2.0 (test code = URO) UA NITRITE DIPSTICK (test NEGATIVE SCREEN NEG code = REBECCA) UA LEUKOCYTE ESTERASE NEGATIVE Leuk/mcL NEGATIVE DIPSTICK (test code = LEUU) UA WBC (test code = WBCU) 0-1 #WBC/HPF 0-3 UA BACTERIA (test code = NONE SEEN /HPF NONE-TRACE BACU) UA SQUAMOUS CELLS (test TRACE /HPF NONE code = SQU) UA MUCUS (test code = MUCU) TRACE /LPF NONE SEEN DRUGS OF ABUSE SCREEN [id number] 13:41:00 Test Item Value Reference Range Interpretation Comments URN COCAINE (test code = NEGATIVE SCcutoff <300 NG/ML COCAURN) URN CANNABINOIDS (test code NEGATIVE SCcutoff <50 NG/ML = CANNABURN) URN AMPHETAMINE (test code NEGATIVE SCcutoff <1000 NG/ML = AMPHETURN) URN BARBITURATE (test code NEGATIVE SCcutoff <200 NG/ML = BARBITURN) URN BENZODIAZEPINE (test NEGATIVE SCcutoff <200 NG/ML code = BENZOURN) URN OPIATES (test code = NEGATIVE SCcutoff <2000 NG/ML OPIATURN) URN PHENCYCLIDINE (PCP) NEGATIVE SCcutoff <25 NG/ML (test code = PHENCURN) URN METHADONE (test code = NEGATIVE SCcutoff <300 NG/ML METHAURN) URINALYSIS [id number] 13:33:00 Test Item Value Reference Range Interpretation Comments UA COLOR (test code = COLU) YELLOW discript YEL/STRAW UA APPEARANCE (test code = CLEAR discript CLEAR APPU) UA GLUCOSE DIPSTICK (test NEGATIVE mg/dL NEG code = DGLUU) UA BILIRUBIN DIPSTICK (test NEGATIVE mg/dL NEG code = BILU) UA KETONE DIPSTICK (test TRACE mg/dL NEG code = KETU) UA SPECIFIC GRAVITY (test 1.020 SG 1.005-1.030 code = SGU) UA BLOOD DIPSTICK (test NEGATIVE mg/DL NEG code = ANALIA) UA PH DIPSTICK (test code = 6.0 pH UNITS 5.0-7.0 GLORIA) UA PROTEIN DIPSTICK (test TRACE mg/dL NEG A code = PROU) UA UROBILINIOGEN DIPSTICK 0.2 mg/dL <2.0 (test code = URO) UA NITRITE DIPSTICK (test NEGATIVE SCREEN NEG code = REBECCA) UA LEUKOCYTE ESTERASE NEGATIVE Leuk/mcL NEGATIVE DIPSTICK (test code = LEUU) UA WBC (test code = WBCU) 0-1 #WBC/HPF 0-3 UA BACTERIA (test code = NONE SEEN /HPF NONE-TRACE BACU) UA SQUAMOUS CELLS (test TRACE /HPF NONE code = SQU) UA MUCUS (test code = MUCU) TRACE /LPF NONE SEEN DRUGS OF ABUSE SCREEN [id number] 13:33:00 Test Item Value Reference Range Interpretation Comments URN COCAINE (test code = COCAURN) SCcutoff <300 NG/ML URN CANNABINOIDS (test code = SCcutoff <50 NG/ML CANNABURN) URN AMPHETAMINE (test code = SCcutoff <1000 NG/ML AMPHETURN) URN BARBITURATE (test code = SCcutoff <200 NG/ML BARBITURN) URN BENZODIAZEPINE (test code = SCcutoff <200 NG/ML BENZOURN) URN OPIATES (test code = OPIATURN) SCcutoff <2000 NG/ML URN PHENCYCLIDINE (PCP) (test code SCcutoff <25 NG/ML = PHENCURN) URN METHADONE (test code = SCcutoff <300 NG/ML METHAURN) CBC W/AUTO [id number] 13:32:00 Test Item Value Reference Range Interpretation Comments WHITE BLOOD CELL (test code = 5.3 K/mm3 3.5-11.0 N WBC) RED BLOOD CELL (test code = RBC) 4.60 M/mm3 4.70-6.10 L HEMOGLOBIN (test code = HGB) 13.4 G/DL 12.3-15.9 N HEMATOCRIT (test code = HCT) 38.9 % 35.8-46.7 N MEAN CELL VOLUME (test code = 84.6 Fl 86.3-98.9 L MCV) MEAN CELL HGB (test code = MCH) 29.1 pg 28.9-34.4 N MEAN CELL HGB CONCETRATION (test 34.4 G/DL 32.1-34.5 N code = MCHC) RED CELL DISTRIBUTION WIDTH (test 14.0 SD 11.5-14.5 N code = RDW) PLATELET COUNT (test code = PLT) 194.0 K/mm3 150-450 N MEAN PLATELET VOLUME (test code = 9.30 fL 7.0-9.6 N MPV) NEUTROPHIL % (test code = NT%) % 40-76 N LYMPHOCYTE % (test code = LY%) % 20.5-51.1 N MONOCYTE % (test code = MO%) % 1.7-9.3 H EOSINOPHIL % (test code = EO%) % 0.0-6.0 N BASOPHIL % (test code = BA%) % 0.0-2.0 N NEUTROPHIL # (test code = NT#) K/mm3 1.8-7.6 N LYMPHOCYTE # (test code = LY#) K/mm3 0.6-3.0 N MONOCYTE # (test code = MO#) K/mm3 0.2-1.5 N EOSINOPHIL # (test code = EO#) K/mm3 0.0-0.4 N BASOPHIL # (test code = BA#) K/mm3 0.0-0.2 N MANUAL DIFF REQUIRED (test code = DIFF/SCN CRITERIA MDIFF) BASIC METABOLIC [id number] 13:32:00 Test Item Value Reference Range Interpretation Comments SODIUM (test code = NA) 140 mmol/L 134-147 N POTASSIUM (test code = K) 3.5 mmol/L 3.4-5.0 N CHLORIDE (test code = CL) 107 mmol/L 100-108 N CARBON DIOXIDE (test code = CO2) 25 mmol/L 21-32 N ANION GAP (test code = GAP) 8.0 GAP calc 4.0-15.0 N GLUCOSE (test code = GLU) 71 MG/DL 70-110 N BLOOD UREA NITROGEN (test code = 13 MG/DL 7-18 N BUN) GLOMERULAR FILTRATION RATE (test estGFR >60 code = GFR) CREATININE (test code = CREAT) MG/DL 0.8-1.3 CALCIUM (test code = CA) 8.3 MG/DL 8.5-10.1 L Last Dose Date: 09/25/18Last Dose Time: [id number] FUNCTION [id number] 13:32:00 Test Item Value Reference Range Interpretation Comments TOTAL PROTEIN (test code = PROT) G/DL 6.4-8.2 ALBUMIN (test code = ALB) G/DL 3.4-5.0 BILIRUBIN TOTAL (test code = BILT) MG/DL 0.2-1.2 BILIRUBIN DIRECT (test code = BILD) MG/DL 0.00-0.30 BILIRUBIN INDIRECT (test code = MG/DL 0.2-1.2 BILIND) SGOT/AST (test code = AST) Unit/L 15-37 SGPT/ALT (test code = ALT) Unit/L 12-78 ALKALINE PHOSPHATASE TOTAL (test code Unit/L 50-136 = ALKP) Last Dose Date: 09/25/18Las Dose Time: [id number] 13:32:00 Test Item Value Reference Range Interpretation Comments ACETAMINOPHEN (test code = ACET) mcG/ML 10.0-30.0 Last Dose Date: 09/25/18 Dose Time: [id number] 13:32:00 Test Item Value Reference Range Interpretation Comments ALCOHOL (test code = ALC) MG/DL 0-10 Last Dose Date: 09/25/18 Dose Time: 699URINALYSIS [id number] 13:22:00 Test Item Value Reference Range Interpretation Comments UA COLOR (test code = COLU) YELLOW discript YEL/STRAW UA APPEARANCE (test code = CLEAR discript CLEAR APPU) UA GLUCOSE DIPSTICK (test NEGATIVE mg/dL NEG code = DGLUU) UA BILIRUBIN DIPSTICK (test NEGATIVE mg/dL NEG code = BILU) UA KETONE DIPSTICK (test TRACE mg/dL NEG code = KETU) UA SPECIFIC GRAVITY (test 1.020 SG 1.005-1.030 code = SGU) UA BLOOD DIPSTICK (test NEGATIVE mg/DL NEG code = ANALIA) UA PH DIPSTICK (test code = 6.0 pH UNITS 5.0-7.0 GLORIA) UA PROTEIN DIPSTICK (test TRACE mg/dL NEG A code = PROU) UA UROBILINIOGEN DIPSTICK 0.2 mg/dL <2.0 (test code = URO) UA NITRITE DIPSTICK (test NEGATIVE SCREEN NEG code = REBECCA) UA LEUKOCYTE ESTERASE NEGATIVE Leuk/mcL NEGATIVE DIPSTICK (test code = LEUU) DRUGS OF ABUSE SCREEN [id number] 13:22:00 Test Item Value Reference Range Interpretation Comments URN COCAINE (test code = COCAURN) SCcutoff <300 NG/ML URN CANNABINOIDS (test code = SCcutoff <50 NG/ML CANNABURN) URN AMPHETAMINE (test code = SCcutoff <1000 NG/ML AMPHETURN) URN BARBITURATE (test code = SCcutoff <200 NG/ML BARBITURN) URN BENZODIAZEPINE (test code = SCcutoff <200 NG/ML BENZOURN) URN OPIATES (test code = OPIATURN) SCcutoff <2000 NG/ML URN PHENCYCLIDINE (PCP) (test code SCcutoff <25 NG/ML = PHENCURN) URN METHADONE (test code = SCcutoff <300 NG/ML METHAURN)
== END 2021-06-14 19:27 | disposition home or self-care (01) ==
LOC: ER 14:21
DX: R40.4 Transient alteration of awareness (principal); T42.1X5A Adverse effect of iminostilbenes, initial encounter; Y92.019 Unspecified place in single-family (private) house as the place of occurrence of the external cause; E03.9 Hypothyroidism, unspecified; I10 Essential (primary) hypertension
CPT/HCPCS: 36415; 70450; 71045; 80048; 80076; 80164; 81003; 81015; 83735; 83880; 84443; 84484; 85025; 85610; 93005; 99284